=== PATIENT | female | born 1935 | race Caucasian/White ===

== ENCOUNTER → 2016-04-06 | Outpatient (CLI) | payer MEDICARE ==
--- NOTE | 2016-04-10 08:13 | MM ---
Reason for exam: screening (asymptomatic). Last mammogram was performed 1 year ago. History: Patient is postmenopausal. Family history of breast cancer in aunt at age 84. Benign stereotactic core biopsy of the left breast, May 09, 1999. Core biopsy of the left breast. Took estrogen for 18 years. Physical Findings: A clinical breast exam by your physician is recommended on an annual basis and results should be correlated with mammographic findings. MG 3D Screening Mammo W/Cad Bilateral CC and MLO view(s) were taken. Prior study comparison: April 04, 2015, right breast MG 3d work up w/cad RT. March 31, 2015, bilateral MG screening mammo w CAD. There are scattered fibroglandular densities. There is chronic nodularity in the right breast. No significant changes when compared with prior studies. ASSESSMENT: Benign, BI-RAD 2 RECOMMENDATION: Routine screening mammogram of both breasts in 1 year.
== END | disposition home or self-care (01) ==
LOC: RADMAMWWP 12:44
PROVIDERS: ATTEND Family Medicine
DX: Z12.31 Encounter for screening mammogram for malignant neoplasm of breast (principal)
CPT/HCPCS: 77063; G0202

== ENCOUNTER → 2017-08-20 | Outpatient (CLI) | payer MEDICARE ==
--- NOTE | 2017-08-22 11:55 | MM ---
Reason for exam: screening (asymptomatic). Last mammogram was performed 1 year and 4 months ago. History: Patient is postmenopausal. Family history of breast cancer in aunt at age 84. Benign stereotactic core biopsy of the left breast, May 09, 1999. Core biopsy of the left breast. Took estrogen for 18 years. Physical Findings: A clinical breast exam by your physician is recommended on an annual basis and results should be correlated with mammographic findings. MG 3D Screening Mammo W/Cad Bilateral CC and MLO view(s) were taken. Prior study comparison: April 06, 2016, bilateral MG 3d screening mammo w/cad. April 04, 2015, right breast MG 3d work up w/cad RT. There are scattered fibroglandular densities. There is chronic nodularity in the right breast. ASSESSMENT: Benign, BI-RAD 2 RECOMMENDATION: Routine screening mammogram of both breasts in 1 year.
== END | disposition home or self-care (01) ==
LOC: RADMAMWWP 10:27
PROVIDERS: ATTEND Internal Medicine
DX: Z12.31 Encounter for screening mammogram for malignant neoplasm of breast (principal)
CPT/HCPCS: 77063; 77067

== ENCOUNTER 2017-09-04 08:34 | Inpatient (IN) | payer MEDICARE ==
[2017-09-04] MEDS ORDERED: SODIUM CHLORIDE 0.9% 1,000 ML IV STA ×2 (08:54)
--- NOTE | 2017-09-04 09:01 | ED ---
Eye Problem HPI <Humza Coats - Last Filed: 09/04/17 11:32> - General Source: patient, RN notes reviewed, old records reviewed Mode of arrival: ambulatory Limitations: no limitations <Chyna Gibson - Last Filed: 09/04/17 11:56> - General Chief complaint: Eye Problems Stated complaint: Double Vision Time Seen by Provider: 09/04/17 08:39 - History of Present Illness Initial comments: This patient's a 81-year-old female chief complaint of onset of double vision when she woke this morning. Patient reports that when she has both her eyes open she sees double vision however when she closes one of her eyes she has normal vision. Patient states that she did have Lasix eye surgery. Patient states that she does visit her right eye is drooping. Patient states that she has no headache. Patient states that she's had no other symptoms including weakness or gait disturbance. Patient states she has no nausea or headache. Patient denies any chest pain or shortness of breath. She reports that she was told that she had a heart attack a few years ago when she was unknown to her when this occurred. (Chyna Gibson) - Related Data Home Medications Medication Instructions Recorded Confirmed Aspirin EC [Ecotrin Low Dose] 81 mg PO DAILY 11/09/16 09/04/17 Carvedilol [Coreg] 6.25 mg PO DAILY 11/09/16 09/04/17 Cetirizine HCl [Zyrtec] 10 mg PO DAILY 11/09/16 09/04/17 Fluticasone/Salmeterol [Advair 1 puff INHALATION RT-BID 11/09/16 09/04/17 100-50 Diskus] Losartan-Hctz 50-12.5 mg [Hyzaar 1 tab PO DAILY 11/09/16 09/04/17 50-12.5] Montelukast [Singulair] 10 mg PO HS 11/09/16 09/04/17 Omeprazole 20 mg PO DAILY 11/09/16 09/04/17 Spironolactone [Aldactone] 25 mg PO DAILY 11/09/16 09/04/17 Atorvastatin [Lipitor] 20 mg PO DAILY 09/04/17 09/04/17 Calcium/Magnesium/Zinc 1 tab PO DAILY 09/04/17 09/04/17 [Lwfftbk-Zyoeezuvl-Qyhi Tablet] Cholecalciferol [Vitamin D3] 1,000 unit PO DAILY 09/04/17 09/04/17 [place]-3 Fatty Acids/Fish Oil [Fish 1 tab PO DAILY 09/04/17 09/04/17 Oil 1,000 mg Softgel] Ubidecarenone [Co Q-10] 400 mg PO DAILY 09/04/17 09/04/17 Vit C/E/Zn/Coppr/Lutein/Zeaxan 1 tab PO DAILY 09/04/17 09/04/17 [Preservision Areds 2 Softgel] diphenhydrAMINE HCL [Benadryl] 25 mg PO HS 09/04/17 09/04/17 Allergies Allergy/AdvReac Type Severity Reaction Status Date / Time cephalexin monohydrate Allergy Chest Pain Verified 09/04/17 09:22 [From Keflex] Review of Systems ROS Other: All systems not noted in ROS Statement are negative. <Humza Coats - Last Filed: 09/04/17 11:32> ROS Other: All systems not noted in ROS Statement are negative. <Chyna Gibson - Last Filed: 09/04/17 11:56> ROS Statement: Those systems with pertinent positive or pertinent negative responses have been documented in the HPI. Past Medical History Past Medical History: Asthma, Myocardial Infarction (MD) Last Myocardial Infarction Date:: unknown History of Any Multi-Drug Resistant Organisms: None Reported Past Surgical History: Hysterectomy, Joint Replacement, Tonsillectomy Past Psychological History: No Psychological Hx Reported Smoking Status: Former smoker Past Alcohol Use History: Occasional Past Drug Use History: None Reported - Past Family History Son(s) Family Medical History: Hyperlipidemia <Chyna Gibson - Last Filed: 09/04/17 11:56> General Exam <Humza Coats - Last Filed: 09/04/17 11:32> Limitations: no limitations General appearance: alert, in no apparent distress Head exam: Present: atraumatic, normocephalic, normal inspection Eye exam: Present: PERRL, EOMI. Absent: normal appearance (Evidence of ptosis over the right eye.), scleral icterus, conjunctival injection, periorbital swelling ENT exam: Present: normal exam, mucous membranes moist Neck exam: Present: normal inspection. Absent: tenderness, meningismus, lymphadenopathy Respiratory exam: Present: normal lung sounds bilaterally. Absent: respiratory distress, wheezes, rales, rhonchi, stridor Cardiovascular Exam: Present: regular rate GI/Abdominal exam: Present: soft, normal bowel sounds. Absent: distended, tenderness, guarding, rebound, rigid Extremities exam: Present: normal inspection, full ROM, normal capillary refill. Absent: tenderness, pedal edema, joint swelling, calf tenderness Neurological exam: Present: alert, oriented X3. Absent: CN II-XII intact Expanded Patient oriented to: Present: person, place, time Speech: Present: fluid speech Cranial nerves: EOM's Intact: Normal (Evidence of ptosis over the right eye.), Facial Sensation: Normal Cerebellar function: Finger to Nose: Normal Upper motor neuron: Pronator Drift: Normal Sensory exam: Upper Extremity Light Touch: Normal, Lower Extremity Light Touch: Normal Motor strength exam: RUE: 5, LUE: 5, RLE: 5, LLE: 5 Eye Response: (4) open spontaneously Motor Response: (6) obeys commands Verbal Response: (5) oriented Arias Total: 15 Psychiatric exam: Present: normal affect, normal mood Skin exam: Present: warm, dry, intact, normal color. Absent: rash <Chyna Gibson - Last Filed: 09/04/17 11:56> - General Exam Comments Initial Comments: This is a 81-year-old female. Alert and oriented. (Chyna Gibson) Course <Humza Coats - Last Filed: 09/04/17 11:32> <Chyna Gibson - Last Filed: 09/04/17 11:56> Vital Signs 09/04/17 09/04/17 09/04/17 08:36 09:22 09:55 Temperature 98.2 F Pulse Rate 79 72 64 Respiratory 20 17 17 Rate Blood Pressure 121/75 119/65 123/60 O2 Sat by Pulse 98 98 Oximetry 09/04/17 11:30 Temperature Pulse Rate Respiratory 18 Rate Blood Pressure O2 Sat by Pulse Oximetry - Reevaluation(s) Reevaluation #1: 09/04/17 11:32 PA supervision: I did personally see and examine the patient I reviewed and agree with the PA findings including all diagnostic interpretation the treatment plan is written unless otherwise stated. Patient did demonstrate evidence of a third nerve palsy is unclear when it occurred the patient was last normal had about 10 PM last evening. She has no other findings or deficits this time she does demonstrate double vision on lateral gaze right and left with evidence of ptosis the right. No evidence of extremity deficits. I did discuss case with Dr. Perez. Patient will be admitted CT angios was ordered. (Humza Coats) Medical Decision Making - Lab Data Result diagrams: 09/04/17 09:11 09/04/17 09:11 <Humza Coats - Last Filed: 09/04/17 11:32> - Lab Data Result diagrams: 09/04/17 09:11 09/04/17 09:11 - Radiology Data Radiology results: report reviewed <Chyna Gibson - Last Filed: 09/04/17 11:56> - Medical Decision Making 81-year-old female presents emergency department today chief complaint of double vision as well as ptosis over the right eye. Patient has no neurological deficits besides these. Concern for deficits to cranial nerve #3. Patient CT of the brain was reviewed and negative for any acute process. Lab work was unremarkable. EKG shows no acute changes. She denies any other complaints at this time including headache. She was given a dose of aspirin emergency department. Patient case discussed with Dr. Coats. He also examined the Patient. Recommended CT ARRI[place]A head and neck. Patient will be admitted at this time currently pending CT. (Chyna Gibson) - Lab Data Lab Results 09/04/17 09/04/17 09/04/17 Range/Units 09:11 09:11 09:11 WBC 7.3 (3.8-10.6) k/uL RBC 4.24 (3.80-5.40) m/uL Hgb 13.6 (11.4-16.0) gm/dL Hct 38.2 (34.0-46.0) % MCV 89.9 (80.0-100.0) fL MCH 31.9 (25.0-35.0) pg MCHC 35.5 (31.0-37.0) g/dL RDW 14.0 (11.5-15.5) % Plt Count 253 (150-450) k/uL Neutrophils % 68 % Lymphocytes % 20 % Monocytes % 7 % Eosinophils % 2 % Basophils % 0 % Neutrophils # 5.0 (1.3-7.7) k/uL Lymphocytes # 1.4 (1.0-4.8) k/uL Monocytes # 0.5 (0-1.0) k/uL Eosinophils # 0.1 (0-0.7) k/uL Basophils # 0.0 (0-0.2) k/uL PT (9.0-12.0) sec INR (<1.2) APTT (22.0-30.0) sec Sodium (137-145) mmol/L Potassium (3.5-5.1) mmol/L Chloride (98-107) mmol/L Carbon Dioxide (22-30) mmol/L Anion Gap mmol/L BUN (7-17) mg/dL Creatinine (0.52-1.04) mg/dL Est GFR (CKD-EPI)AfAm (>60 ml/min/1.73 sqM) Est GFR (CKD-EPI)NonAf (>60 ml/min/1.73 sqM) Glucose (74-99) mg/dL Calcium (8.4-10.2) mg/dL Total Bilirubin (0.2-1.3) mg/dL AST (14-36) U/L ALT (9-52) U/L Alkaline Phosphatase (38-126) U/L Total Creatine Kinase 20 L (30-135) U/L CK-MB (CK-2) 0.5 (0.0-2.4) ng/mL CK-MB (CK-2) Rel Index 2.5 Troponin I <0.012 (0.000-0.034) ng/mL Total Protein (6.3-8.2) g/dL Albumin (3.5-5.0) g/dL Urine Color Light Yellow Urine Appearance Clear (Clear) Urine pH 5.5 (5.0-8.0) Ur Specific Str[place] 1.005 (1.001-1.035) Urine Protein Negative (Negative) Urine Glucose (UA) Negative (Negative) Urine Ketones Negative (Negative) Urine Blood Negative (Negative) Urine Nitrite Negative (Negative) Urine Bilirubin Negative (Negative) Urine Urobilinogen <2.0 (<2.0) mg/dL Ur Leukocyte Esterase Negative (Negative) 09/04/17 09/04/17 Range/Units 09:11 09:11 WBC (3.8-10.6) k/uL RBC (3.80-5.40) m/uL Hgb (11.4-16.0) gm/dL Hct (34.0-46.0) % MCV (80.0-100.0) fL MCH (25.0-35.0) pg MCHC (31.0-37.0) g/dL RDW (11.5-15.5) % Plt Count (150-450) k/uL Neutrophils % % Lymphocytes % % Monocytes % % Eosinophils % % Basophils % % Neutrophils # (1.3-7.7) k/uL Lymphocytes # (1.0-4.8) k/uL Monocytes # (0-1.0) k/uL Eosinophils # (0-0.7) k/uL Basophils # (0-0.2) k/uL PT 9.9 (9.0-12.0) sec INR 1.0 (<1.2) APTT 22.8 (22.0-30.0) sec Sodium 138 (137-145) mmol/L Potassium 4.6 (3.5-5.1) mmol/L Chloride 107 (98-107) mmol/L Carbon Dioxide 21 L (22-30) mmol/L Anion Gap 10 mmol/L BUN 17 (7-17) mg/dL Creatinine 0.68 (0.52-1.04) mg/dL Est GFR (CKD-EPI)AfAm >90 (>60 ml/min/1.73 sqM) Est GFR (CKD-EPI)NonAf 84 (>60 ml/min/1.73 sqM) Glucose 114 H (74-99) mg/dL Calcium 9.7 (8.4-10.2) mg/dL Total Bilirubin 0.7 (0.2-1.3) mg/dL AST 24 (14-36) U/L ALT 30 (9-52) U/L Alkaline Phosphatase 111 (38-126) U/L Total Creatine Kinase (30-135) U/L CK-MB (CK-2) (0.0-2.4) ng/mL CK-MB (CK-2) Rel Index Troponin I (0.000-0.034) ng/mL Total Protein 6.6 (6.3-8.2) g/dL Albumin 4.2 (3.5-5.0) g/dL Urine Color Urine Appearance (Clear) Urine pH (5.0-8.0) Ur Specific Strunk (1.001-1.035) Urine Protein (Negative) Urine Glucose (UA) (Negative) Urine Ketones (Negative) Urine Blood (Negative) Urine Nitrite (Negative) Urine Bilirubin (Negative) Urine Urobilinogen (<2.0) mg/dL Ur Leukocyte Esterase (Negative) 09/04/17 09:08 EKG performed at 905 shows normal sinus rhythm. Left axis deviation. Left bundle branch block. Abnormal EKG noted. Ventricular rate of 73 bpm. CA interval is 170 ms. QRS duration is 140 ms. QT QTc is 434/478 ms. (Chyna Gibson) - Radiology Data Reveals age-related atrophy. No acute intracranial process. Sinusitis. Clinical correlation recommended. Chest x-ray shows no acute pulmonary process. (Chyna Gibson) Disposition <Humza Coats - Last Filed: 09/04/17 11:32> Is patient prescribed a controlled substance at d/c from ED?: No When asked, does pt state using other controlled substances?: No If prescribed controlled substance>3 days was MAPS reviewed?: No If opioid is for acute pain is fill amount 7 days or less?: No If Rx opioid, was Start Talking consent form obtained?: No Time of Disposition: 11:56 <Chyna Gibson - Last Filed: 09/04/17 11:56> Clinical Impression: TIA (transient ischemic attack) Disposition: ADMITTED IP TO THIS HOSP Condition: Stable Referrals: Ivan Rosa MD [Primary Care Provider] - 1-2 days
[2017-09-04] MEDS ORDERED: ASPIRIN 325 MG TAB PO STA (09:02)
--- NOTE | 2017-09-04 09:44 | CT ---
EXAMINATION TYPE: CT brain wo con DATE OF EXAM: 09/04/2017 COMPARISON: None INDICATION: Double vision DLP: 1094.2 mGycm, Automated exposure control for dose reduction was used. CONTRAST: None CT of the brain is performed utilizing 3 mm thick sections through the posterior fossa and 3 mm thick sections through the remaining calvarium. Study is performed within 24 hours of arrival to the hosp ital. No abnormal hyperdensity is present to suggest an acute intracranial hemorrhage. No mass lesion is evident. No acute infarcts are evident. Ventricles and sulci have mild prominence for the patient age. There is near complete opacification of the left maxillary sinus. Correlate for acute sinusitis. A re tention cyst is likely within the right maxillary sinus. Main paranasal sinuses are clear. IMPRESSIONS: 1. Mild age-related atrophy. 2. No acute intracranial process. 3. Left maxillary sinusitis. Clinical correlation recommended.
[2017-09-04 09:53] LABS: Appearance,Urine Clear (Clear); Bilirubin,Urine Negative (Negative); Blood,Urine Negative (Negative); Color,Urine Light Yellow; Glucose,Urine (UA) Negative (Negative); Ketones,Urine Negative (Negative); Leukocyte Esterase,Urine Negative (Negative); Nitrite,Urine Negative (Negative); PH, Urine 5.5 (5.0-8.0); Protein,Urine Negative (Negative); Specific Gravity,Urine 1.005 (1.001-1.035); Urobilinogen,Urine <2.0 mg/dL (<2.0)
--- NOTE | 2017-09-04 09:57 | XR ---
EXAMINATION TYPE: XR chest 2V DATE OF EXAM: 09/04/2017 COMPARISON: 07/04/2010 INDICATION: Altered mental status, double vision TECHNIQUE: Frontal and lateral views of the chest are obtained. FINDINGS: The heart size is normal. The pulmonary vasculature is normal. The lungs are clear. IMPRESSION: 1. No acute pulmonary process.
[2017-09-04 09:58] LABS: Partial Thromboplastin Time 22.8 sec (22.0-30.0); Prothrombin Time 9.9 sec (9.0-12.0)
[2017-09-04 10:02] LABS: Basophils % (A) 0 %; Eosinophils # (A) 0.1 k/uL (0-0.7); Eosinophils % (A) 2 %; HCT 38.2 % (34.0-46.0); HGB 13.6 gm/dL (11.4-16.0); Lymphocytes # (A) 1.4 k/uL (1.0-4.8); Lymphocytes % (A) 20 %; MCH 31.9 pg (25.0-35.0); MCHC 35.5 g/dL (31.0-37.0); MCV 89.9 fL (80.0-100.0); Mean Platelet Volume 6.8; Monocytes # (A) 0.5 k/uL (0-1.0); Monocytes % (A) 7 %; Neutrophils % (A) 68 %; Platelet Count 253 k/uL (150-450); RBC 4.24 m/uL (3.80-5.40); WBC 7.3 k/uL (3.8-10.6)
[2017-09-04 10:15] LABS: ALT 30 U/L (9-52); AST 24 U/L (14-36); Albumin 4.2 g/dL (3.5-5.0); Alkaline Phosphatase 111 U/L (38-126); Anion Gap 10 mmol/L; Blood Urea Nitrogen 17 mg/dL (7-17); Calcium 9.7 mg/dL (8.4-10.2); Carbon Dioxide 21 mmol/L (22-30); Chloride 107 mmol/L (98-107); Glucose 114 mg/dL (74-99); Potassium 4.6 mmol/L (3.5-5.1); Sodium 138 mmol/L (137-145); Total Bilirubin 0.7 mg/dL (0.2-1.3); Total Protein 6.6 g/dL (6.3-8.2)
[2017-09-04 10:17] LABS: Creatine Kinase 20 U/L (30-135)
[2017-09-04 10:30] LABS: Creatine Kinase MB 0.5 ng/mL (0.0-2.4); Troponin I <0.012 ng/mL (0.000-0.034)
--- NOTE | 2017-09-04 12:13 | CT ---
EXAMINATION TYPE: CT angio head neck DATE OF EXAM: 09/04/2017 COMPARISON: CT brain earlier today HISTORY: 81-year-old female with pain and double vision TECHNIQUE: Contiguous axial scanning of the head and neck performed with IV Contrast, patient injecte d with 65 mL of Isovue 370. Coronal/sagittal MIP reconstructions performed. 3-D reconstructions gener ated on a dedicated independent workstation CT DLP: 378.80 mGycm Automated exposure control for dose reduction was used. FINDINGS: Neck: Mild atherosclerotic calcifications within the aortic arch. Mild metastatic narrowing at the origin o f the left common carotid artery. The left common and internal carotid arteries otherwise remain wide ly patent. The right brachiocephalic, and right common carotid arteries are widely patent. There is mild eccentr ic plaque within the right carotid bulb with less than 20% proximal ICA narrowing. The right internal carotid artery is otherwise widely patent. Mild atherosclerotic narrowing at the origin of the left vertebral artery. The vertebral arteries are codominant and patent throughout their course. Head: Moderate to severe mucosal thickening within the left maxillary sinus and a polyp/mucosal retention c yst along the floor of the right maxillary sinus. The vertebral, basilar, and internal carotid arteries are patent. The remainder of the anterior and p osterior circulations are grossly patent. Very slight 3.3 mm fusiform dilatation at the basilar artery terminus, series 4 image 88 and series 1 0 image 12. IMPRESSION: 1. NECK: MILD ATHEROSCLEROTIC PLAQUE AT THE RIGHT CAROTID BULB. NO HEMODYNAMICALLY SIGNIFICANT STENOS IS APPRECIATED IN EITHER INTERNAL CAROTID ARTERY. MILD ATHEROSCLEROTIC NARROWING AT THE ORIGIN OF THE LEFT VERTEBRAL ARTERY. 2. HEAD: SLIGHT 3.3 MM FUSIFORM DILATATION AT THE BASILAR ARTERY TERMINUS. NO SIGNIFICANT STENOSIS, A RTERIAL OCCLUSION, OR OTHER ANEURYSMAL CHANGE SEEN. INCIDENTAL SEVERE CHRONIC LEFT MAXILLARY SINUS DI SEASE.
[2017-09-04] MEDS: HEPARIN SODIUM,PORCINE 5,000 UNIT/ML 1 ML VIAL SQ SCH (12:55)
[2017-09-04] MEDS: CARVEDILOL 6.25 MG TAB PO SCH (13:55)
[2017-09-04] MEDS: LOSARTAN-HCTZ 50-12.5 MG 1 EACH TAB PO SCH (13:55)
[2017-09-04] MEDS: LORATADINE 10 MG TAB PO SCH (13:55)
[2017-09-04] MEDS: SPIRONOLACTONE 25 MG TAB PO SCH (13:55)
--- NOTE | 2017-09-04 14:53 | P.HPIM ---
History of Present Illness H&P Date: 09/04/17 Chief Complaint: Double vision Is a 81-year-old female patient of Dr. Rosa with past medical history of moderate persistent asthma, myocardial infarction without previous stenting, hypertension, gastroesophageal reflux disease, hyperlipidemia. His last hospitalization was in October of last year which time she was treated for cat bite. Patient states that she developed double vision this morning. She was fine before she went to bed last night but woke up with double vision and drooping of her right eyelid. She denies any numbness. She denies any recent illness. In general, she states she didn't feel very good yesterday but she thought it was related to stress as her sump pump failed to work. She last saw Dr. Rosa in the spring and last saw Dr. Heranndez about 3 months ago. At that time he did do carotid study and she thinks he also did echocardiogram. Patient denies having any chest pain or shortness of breath. She denies any weakness or trouble with her lower extremities. No problems with ambulating or falls. She denies having any headache but feels like she is on the verge of getting a headache. No nausea or vomiting. She denies any black or tarry stools. Patient came into [facility] emergency center for evaluation. Vital signs stable. Patient was afebrile, pulse ox 98% on room air. CBC within normal limits, electrolytes essentially normal, creatinine 0.68. Blood sugar was 114. Chest x-ray CT of the brain showed mild age-related atrophy. No acute intracranial process. Left maxillary sinusitis. Patient has been admitted to the hospital for possible CVA rule out brain aneurysm, rule out myasthenia gravis. Subsequently, CTA of the neck showed mild atherosclerotic plaque at the right carotid bulb. No hemodynamically significant stenosis on either internal carotid artery. Mild atherosclerotic narrowing at the left vertebral artery. 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 No significant stenosis, arterial occlusion or other aneurysmal change seen. 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 BRONSON, acetylcholine, vitamin B12, folate, Lyme disease testing and MUSK antibodies ordered. Consult with Dr. Heaton added. Review of Systems All systems: negative Constitutional: Reports fatigue, Denies chills, Denies fever, Denies poor appetite Eyes: bilateral diplopia, denies blurred vision, denies pain Ears, nose, mouth and throat: Denies headache, Denies sore throat Cardiovascular: Denies chest pain, Denies decreased exercise tolerance, Denies dyspnea on exertion, Denies edema, Denies leg edema, Denies lightheadedness, Denies shortness of breath, Denies syncope Respiratory: Denies cough, Denies cough with sputum, Denies dyspnea, Denies excessive sputum, Denies hemoptysis, Denies home oxygen, Denies wheezing Gastrointestinal: Denies abdominal pain, Denies diarrhea, Denies nausea, Denies vomiting Genitourinary: Denies dysuria, Denies hematuria Musculoskeletal: Denies myalgias Integumentary: Denies pruritus, Denies rash Neurological: Denies numbness, Denies weakness Psychiatric: Denies anxiety, Denies depression Endocrine: Denies fatigue, Denies weight change Past Medical History Past Medical History: Asthma, GERD/Reflux, Hyperlipidemia, Hypertension, Myocardial Infarction ([place]) Additional Past Medical History / Comment(s): Moderate persistent asthma Last Myocardial Infarction Date:: unknown History of Any Multi-Drug Resistant Organisms: None Reported Past Surgical History: Hysterectomy, Joint Replacement, Tonsillectomy Additional Past Surgical History / Comment(s): Bilateral cataract removal and intraocular lens implants done 2-3 years ago, arthroscopic be with repair of OCL on the right knee. Past Psychological History: No Psychological Hx Reported Smoking Status: Former smoker Past Alcohol Use History: Occasional Additional Past Alcohol Use History / Comment(s): Patient was a smoker of half pack per day for 40 years and quit 25 years ago. Past Drug Use History: None Reported - Past Family History Son(s) Family Medical History: Hyperlipidemia Additional Family Medical History / Comment(s): Patient has one son and one daughter with no major medical problems. Father Additional Family Medical History / Comment(s): Father at age 76 from renal failure secondary to ankylosing spondylitis. Mother Additional Family Medical History / Comment(s): Mother at age 100 from old age. Medications and Allergies Home Medications Medication Instructions Recorded Confirmed Type Aspirin EC [Ecotrin Low Dose] 81 mg PO DAILY 11/09/16 09/04/17 History Carvedilol [Coreg] 6.25 mg PO DAILY 11/09/16 09/04/17 History Cetirizine HCl [Zyrtec] 10 mg PO DAILY 11/09/16 09/04/17 History Fluticasone/Salmeterol [Advair 1 puff INHALATION RT-BID 11/09/16 09/04/17 History 100-50 Diskus] Losartan-Hctz 50-12.5 mg [Hyzaar 1 tab PO DAILY 11/09/16 09/04/17 History 50-12.5] Montelukast [Singulair] 10 mg PO HS 11/09/16 09/04/17 History Omeprazole 20 mg PO DAILY 11/09/16 09/04/17 History Spironolactone [Aldactone] 25 mg PO DAILY 11/09/16 09/04/17 History Atorvastatin [Lipitor] 20 mg PO DAILY 09/04/17 09/04/17 History Calcium/Magnesium/Zinc 1 tab PO DAILY 09/04/17 09/04/17 History [Iwpwrav-Pwgxezctt-Lvys Tablet] Cholecalciferol [Vitamin D3] 1,000 unit PO DAILY 09/04/17 09/04/17 History [place]-3 Fatty Acids/Fish Oil [Fish 1 tab PO DAILY 09/04/17 09/04/17 History Oil 1,000 mg Softgel] Ubidecarenone [Co Q-10] 400 mg PO DAILY 09/04/17 09/04/17 History Vit C/E/Zn/Coppr/Lutein/Zeaxan 1 tab PO DAILY 09/04/17 09/04/17 History [Preservision Areds 2 Softgel] diphenhydrAMINE HCL [Benadryl] 25 mg PO HS 09/04/17 09/04/17 History Allergies Allergy/AdvReac Type Severity Reaction Status Date / Time cephalexin monohydrate Allergy Chest Pain Verified 09/04/17 09:22 [From Keflex] Physical Exam Vitals: Vital Signs Temp Pulse Resp BP Pulse Ox 09/04/17 09:55 64 17 123/60 98 09/04/17 09:22 72 17 119/65 09/04/17 08:36 98.2 F 79 20 121/75 98 Intake and Output 09/03/17 09/04/17 09/04/17 22:59 06:59 14:59 Other: Weight 71.668 kg Gen: This is a 81-year-old female. She is seen in the ER stretcher and appears to be comfortable in no acute distress. HEENT: Head is atraumatic, normocephalic. Pupils equal, round. Sclerae is anicteric. Noted right eyelid droop. NECK: Supple. No JVD. No lymphadenopathy. No thyromegaly. LUNGS: Clear to auscultation. No wheezes or rhonchi. No intercostal retractions. HEART: Regular rate and rhythm. No murmur. ABDOMEN: Soft. Bowel sounds are present. No masses. No tenderness. EXTREMITIES: No pedal edema. No calf tenderness. NEUROLOGICAL: Patient is awake, alert and oriented x3. Cranial nerves 2 through 12 are grossly intact. 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 Speech is clear Results CBC & Chem 7: 09/04/17 09:11 09/04/17 09:11 Labs: Abnormal Lab Results - Last 24 Hours (Table) 09/04/17 09/04/17 Range/Units 09:11 09:11 Carbon Dioxide 21 L (22-30) mmol/L Glucose 114 H (74-99) mg/dL Total Creatine Kinase 20 L (30-135) U/L Thrombosis Risk Factor Assmnt - DVT/VTE Prophylaxis DVT/VTE Prophylaxis: Pharmacologic Prophylaxis ordered Assessment and Plan Plan: 1. Presentation of blurred vision and right eyelid droop rule out CVA, brain aneurysm, myasthenia gravis. Consult with Dr. Heaton. CTA of the head and neck as above. BRONSON, acetylcholine, vitamin B12, folate, Lyme disease testing and MUSK antibodies ordered. Continue aspirin, Lipitor. PT, OT and speech therapies requested. 2. Hypertension. Continue Coreg 6.25 mg twice daily, Hyzaar 50/12.5 daily, spironolactone 25 mg daily 3. Moderate persistent asthma, stable without exacerbation. Continue Symbicort twice daily, Singulair 10 mg at bedtime 4. History of myocardial infarction without stenting. No complaints of chest pain. 5. Gastroesophageal reflux disease. Continue Pepcid daily 6. Hyperlipidemia. Continue atorvastatin 20 mg at bedtime. 7. DVT prophylaxis. Heparin subcu. Patient will be admitted to the hospital for a minimum of 2 night stay. Discharge plan: Most likely return home Impression and plan of care have been directed as dictated by the signing physician. Ava Borjas nurse practitioner acting as scribe for signing physician.
[2017-09-04] MEDS: SYMBICORT 80-4.5 MCG INHALER INHALATION SCH (19:19)
[2017-09-04 19:23] LABS: Folate, Serum 16.9 ng/mL
[2017-09-04] MEDS: SODIUM CHLORIDE 0.9% 1,000 ML IV SCH ×2 (19:38→21:32)
[2017-09-04] MEDS: ATORVASTATIN 20 MG TAB PO SCH (19:50)
[2017-09-04] MEDS: FAMOTIDINE 20 MG/2 ML VIAL IV SCH (19:50)
[2017-09-04] MEDS: MONTELUKAST 10 MG TAB PO SCH (19:50)
[2017-09-04] MEDS ORDERED: HEPARIN SODIUM,PORCINE 5,000 UNIT/ML 1 ML VIAL ONE (23:35)
[2017-09-05] MEDS ORDERED: diphenhydrAMINE 25 MG CAP ONE (00:30)
[2017-09-05] MEDS: diphenhydrAMINE 25 MG CAP PO SCH ×2 (05:58→21:32)
[2017-09-05] MEDS: HEPARIN SODIUM,PORCINE 5,000 UNIT/ML 1 ML VIAL SQ SCH ×3 (05:58→23:25)
[2017-09-05] MEDS: PANTOPRAZOLE 40 MG TABLET PO SCH (06:46)
[2017-09-05] MEDS: CARVEDILOL 6.25 MG TAB PO SCH (06:46)
[2017-09-05] MEDS: SODIUM CHLORIDE 0.9% 1,000 ML IV SCH (06:50)
[2017-09-05] MEDS: CHOLECALCIFEROL 1,000 UNIT TAB PO SCH (08:58)
[2017-09-05] MEDS: CALCIUM CARB-VIT D 250MG-125UN 1 EACH TAB PO SCH (08:58)
[2017-09-05] MEDS: LORATADINE 10 MG TAB PO SCH (08:58)
[2017-09-05] MEDS: SYMBICORT 80-4.5 MCG INHALER INHALATION SCH ×2 (08:58→18:49)
[2017-09-05] MEDS: FAMOTIDINE 20 MG/2 ML VIAL IV SCH (08:58)
[2017-09-05] MEDS: ASPIRIN 81 MG PO SCH (08:58)
[2017-09-05] MEDS: SPIRONOLACTONE 25 MG TAB PO SCH (08:59)
[2017-09-05] MEDS: LOSARTAN-HCTZ 50-12.5 MG 1 EACH TAB PO SCH (08:59)
[2017-09-05] MEDS ORDERED: NON-FORMULARY DRUG (Omega-3 Fatty Acids/Fish Oil [Fish Oil 1,000 Mg Softgel] 1 TAB) PO SCH (09:00)
--- NOTE | 2017-09-05 10:28 | P.CRDCN ---
History of Present Illness Consult date: 09/05/17 Requesting physician: Digna Perez Chief complaint: Double vision History of present illness: This is a pleasant 81-year-old female who follows regularly with Dr. Hernandez in the office. She has a known history of hypertension, hyperlipidemia, asthma, prior myocardial infarction in the past which she was told was a silent NH, patient has not undergone any form of intervention in the past. She did undergo a Lexiscan stress test in 2015 which did not reveal any evidence of ischemia. Echo performed in the office in February of this year revealed a normal ejection fraction. According to the patient, she's been doing quite well at home overall, she felt well going to bed the night before, but upon wakening she states that she had double vision and drooping of the right eyelid. She denies any other symptoms. She came to the hospital for this reason. CAT scan of the brain performed on arrival here revealed mild age- related atrophy, no acute intracranial process, left maxillary sinusitis. Chest x-ray did not reveal any acute cardiopulmonary process. CT angiography of the head and neck was also performed, revealed mild atherosclerotic plaque at the right carotid bulb, no hemodynamically significant stenosis appreciated in either internal carotid artery. Slight 3 mm fusiformly dilated dictation of the basilar artery terminus noted no significant stenosis arterial occlusion or other aneurysmal change seen. EKG on admission showed normal sinus rhythm with left bundle branch block pattern. Blood pressure 136/60 with a heart rate in the 70s, 93% on room air. CBC normal, hemoglobin 13.6, platelet count 253, sodium 138, potassium 4.6, BUN 17, creatinine 0.6. Troponin 0.012. BRONSON screen negative. At the time of my examination this morning, patient continues to have drooping of the right eyelid, her right eye she is able to see clearly out of her left eye, left eye is quite blurry, and when both eyes are open she continues to have diplopia. Past Medical History Past Medical History: Asthma, GERD/Reflux, Hyperlipidemia, Hypertension, Myocardial Infarction ([place]) Additional Past Medical History / Comment(s): Moderate persistent asthma, past bronchitis, cat bit developed cellulitis rt lower ext. hx silent mi, migraines, cataracts(sx), past uterine fibroids(sx) Last Myocardial Infarction Date:: unknown History of Any Multi-Drug Resistant Organisms: None Reported Past Surgical History: Hysterectomy, Joint Replacement, Tonsillectomy Additional Past Surgical History / Comment(s): Bilateral cataract removal and intraocular lens implants done 2-3 years ago, rt knee acl repair, colonoscopy/ polypectomy-benign., egd, lt breast bx-neg, 2 previous dental implant and inprocess of 3rd one. Smoking Status: Former smoker - Past Family History Son(s) Family Medical History: Hyperlipidemia Additional Family Medical History / Comment(s): Patient has one son and one daughter with no major medical problems. Father Additional Family Medical History / Comment(s): Father at age 76 from renal failure. secondary to "ankylosing spondylitis". Mother Additional Family Medical History / Comment(s): Mother in hursing home at age 100. hx bipolar depression, schizophrenia, dementia Medications and Allergies Home Medications Medication Instructions Recorded Confirmed Type Aspirin EC [Ecotrin Low Dose] 81 mg PO DAILY 11/09/16 09/04/17 History Carvedilol [Coreg] 6.25 mg PO DAILY 11/09/16 09/04/17 History Cetirizine HCl [Zyrtec] 10 mg PO DAILY 11/09/16 09/04/17 History Fluticasone/Salmeterol [Advair 1 puff INHALATION RT-BID 11/09/16 09/04/17 History 100-50 Diskus] Losartan-Hctz 50-12.5 mg [Hyzaar 1 tab PO DAILY 11/09/16 09/04/17 History 50-12.5] Montelukast [Singulair] 10 mg PO HS 11/09/16 09/04/17 History Omeprazole 20 mg PO DAILY 11/09/16 09/04/17 History Spironolactone [Aldactone] 25 mg PO DAILY 11/09/16 09/04/17 History Atorvastatin [Lipitor] 20 mg PO DAILY 09/04/17 09/04/17 History Calcium/Magnesium/Zinc 1 tab PO DAILY 09/04/17 09/04/17 History [Rhrvkab-Fndeaakmp-Doqv Tablet] Cholecalciferol [Vitamin D3] 1,000 unit PO DAILY 09/04/17 09/04/17 History [place]-3 Fatty Acids/Fish Oil [Fish 1 tab PO DAILY 09/04/17 09/04/17 History Oil 1,000 mg Softgel] Ubidecarenone [Co Q-10] 400 mg PO DAILY 09/04/17 09/04/17 History Vit C/E/Zn/Coppr/Lutein/Zeaxan 1 tab PO DAILY 09/04/17 09/04/17 History [Preservision Areds 2 Softgel] diphenhydrAMINE HCL [Benadryl] 25 mg PO HS 09/04/17 09/04/17 History Allergies Allergy/AdvReac Type Severity Reaction Status Date / Time cephalexin monohydrate Allergy Chest Pain Verified 09/04/17 09:22 [From Keflex] Physical Exam Vitals: Vital Signs Temp Pulse Pulse Resp BP BP Pulse Ox 09/05/17 09:03 79 18 09/05/17 08:57 97.6 F 79 18 137/66 93 L 09/04/17 20:00 97.5 F L 68 15 148/68 93 L 09/04/17 18:17 98.2 F 63 17 154/82 100 09/04/17 16:54 16 09/04/17 15:48 62 17 151/70 99 09/04/17 14:46 59 L 18 143/64 100 09/04/17 13:58 66 18 139/70 98 09/04/17 12:18 74 17 145/65 97 09/04/17 11:30 18 09/04/17 09:55 64 17 123/60 98 Intake and Output 09/04/17 09/05/17 09/05/17 22:59 06:59 14:59 Intake Total 580 Balance 580 Intake: IV 100 Sodium Chloride 0.9% 1, 100 000 ml @ 100 mls/hr IV . Q10H [facility] Rx#:[id number] Oral 480 Other: Voiding Method Toilet # Voids 1 PHYSICAL EXAMINATION: GENERAL: 81-year-old female in no acute distress at time of my examination HEENT: Head is atraumatic, normocephalic. Drooping of the right eyelid noted .Mucous membranes of the mouth are moist. Neck is supple. There is no elevated jugular venous pressure. No carotid bruit is heard. HEART EXAMINATION: Heart S1, S2 normal. No murmur or gallop heard. CHEST EXAMINATION: Lungs reveal scattered wheezing . No chest wall tenderness is noted on palpation or with deep breathing. ABDOMEN: Soft, nontender. Bowel sounds are heard. No organomegaly noted. EXTREMITIES: 2+ peripheral pulses with no evidence of peripheral edema and no calf tenderness noted. NEUROLOGIC [patient is awake, alert and oriented X3. Positive doploplia when both eyes open. Results 09/04/17 09:11 09/04/17 09:11 Cardiac Enzymes 09/04/17 09/04/17 Range/Units 09:11 09:11 AST 24 (14-36) U/L CK-MB (CK-2) 0.5 (0.0-2.4) ng/mL Troponin I <0.012 (0.000-0.034) ng/mL Coagulation 09/04/17 Range/Units 09:11 PT 9.9 (9.0-12.0) sec APTT 22.8 (22.0-30.0) sec CBC 09/04/17 Range/Units 09:11 WBC 7.3 (3.8-10.6) k/uL RBC 4.24 (3.80-5.40) m/uL Hgb 13.6 (11.4-16.0) gm/dL Hct 38.2 (34.0-46.0) % Plt Count 253 (150-450) k/uL Comprehensive Metabolic Panel 09/04/17 Range/Units 09:11 Sodium 138 (137-145) mmol/L Potassium 4.6 (3.5-5.1) mmol/L Chloride 107 (98-107) mmol/L Carbon Dioxide 21 L (22-30) mmol/L BUN 17 (7-17) mg/dL Creatinine 0.68 (0.52-1.04) mg/dL Glucose 114 H (74-99) mg/dL Calcium 9.7 (8.4-10.2) mg/dL AST 24 (14-36) U/L ALT 30 (9-52) U/L Alkaline Phosphatase 111 (38-126) U/L Total Protein 6.6 (6.3-8.2) g/dL Albumin 4.2 (3.5-5.0) g/dL Current Medications Generic Name Dose Route Start Last Admin Trade Name Freq PRN Reason Stop Dose Admin Aspirin 81 mg 09/05/17 09:00 09/05/17 08:58 Aspirin PO 81 mg DAILY [facility] Administration Atorvastatin Calcium 20 mg 09/04/17 21:00 09/04/17 19:50 Lipitor PO 20 mg HS [facility]O Administration Budesonide/Formoterol Fumarate 2 puff 09/04/17 20:00 09/05/17 08:58 Symbicort 80-4.5 Mcg Inhaler INHALATION 2 puff RT-BID [facility]O Administration Calcium Carbonate 1 each 09/05/17 09:00 09/05/17 08:58 Oscal 250+D PO 1 each DAILY [facility] Administration Carvedilol 6.25 mg 09/04/17 12:30 09/05/17 06:46 Coreg PO 6.25 mg AC-[id number] [facility] Administration Cholecalciferol 1,000 unit 09/05/17 09:00 09/05/17 08:58 Vitamin D3 PO 1,000 unit DAILY [facility] Administration Diphenhydramine HCl 25 mg 09/04/17 21:00 09/05/17 05:58 Benadryl PO Not Given HS [facility] Famotidine 20 mg 09/04/17 21:00 09/05/17 08:58 Pepcid IV 20 mg Q12HR [facility] Administration HCTZ/Losartan Potassium 1 each 09/04/17 12:30 09/05/17 08:59 Hyzaar 50-12.5 PO 1 each DAILY [facility] Administration Heparin Sodium (Porcine) 5,000 unit 09/04/17 12:00 09/05/17 05:58 Heparin SQ Not Given Q12H [facility] Sodium Chloride 1,000 mls @ 100 mls/hr 09/04/17 12:00 09/05/17 06:50 Saline 0.9% IV 100 mls/hr .Q10H [facility] Administration Loratadine 10 mg 09/04/17 12:30 09/05/17 08:58 Claritin PO 10 mg DAILY [facility]O Administration Montelukast Sodium 10 mg 09/04/17 21:00 09/04/17 19:50 Singulair PO 10 mg HS [facility] Administration Pantoprazole Sodium 40 mg 09/05/17 07:30 09/05/17 06:46 Protonix PO 40 mg AC-BRKFST [facility] Administration Spironolactone 25 mg 09/04/17 12:30 09/05/17 08:59 Aldactone PO 25 mg DAILY R[facility]ARDO Administration Intake and Output 09/04/17 09/05/17 09/05/17 22:59 06:59 14:59 Intake Total 580 Balance 580 Intake: IV 100 Sodium Chloride 0.9% 1, 100 000 ml @ 100 mls/hr IV . Q10H [facility] Rx#:[id number] Oral 480 Other: Voiding Method Toilet # Voids 1 09/04/17 09:11 09/04/17 09:11 EKG Interpretations (text) EKG shows normal sinus rhythm with a left bundle-branch block pattern Assessment and Plan Plan: Assessment and plan #1 type locally with a drooping of the right eyelid, rule out CVA. #2 hypertension #3 asthma #4 GERD #5 hx of prior silent NH, per patient Plan Patient had a recent echocardiogram with Doppler study performed in the office in February 2017 which revealed a normal left ventricular systolic function., we will repeat an echo this admission as well. There has been no evidence of any atrial fibrillation on the monitor, we will continue to monitor for any arrhythmias. Patient also may require 30 day event monitor or loop recorder on discharge. Further recommendations to follow. DNP note has been reviewed, I agree with a documented findings and plan of care. Patient was seen and examined.
--- NOTE | 2017-09-05 11:51 | P.PN ---
Progress Note - Text this is an addendum to the cardiology consultation. the patient presents with symptoms of double vision. She had no prior history of CVA or TIA. She has no history of arrhythmia. She is a prior history of cardiomyopathy but on her most recent echocardiogram her left ventricle systolic function has normalized.she has no prior history of atrial fibrillation. She has been active physically without any limitations or difficulty. On her physical examination she is in sinus mechanism with no evidence of fluid overload. Her EKG shows sinus mechanism and she has no evidence of arrhythmia on the monitor. We will obtain an echocardiogram with Doppler and await neurological evaluation depending on that further recommendations will be made. Thank you for this consult we will follow with you.
--- NOTE | 2017-09-05 12:56 | P.PN ---
Subjective Progress Note Date: 09/05/17 This s a 81-year-old female patient of Dr. Rosa with past medical history of moderate persistent asthma, myocardial infarction without previous stenting, hypertension, gastroesophageal reflux disease, hyperlipidemia. His last hospitalization was in October of last year which time she was treated for cat bite. Patient states that she developed double vision this morning. She was fine before she went to bed last night but woke up with double vision and drooping of her right eyelid. She denies any numbness. She denies any recent illness. In general, she states she didn't feel very good yesterday but she thought it was related to stress as her sump pump failed to work. She last saw Dr. Rosa in the spring and last saw Dr. Hernandez about 3 months ago. At that time he did do carotid study and she thinks he also did echocardiogram. Patient denies having any chest pain or shortness of breath. She denies any weakness or trouble with her lower extremities. No problems with ambulating or falls. She denies having any headache but feels like she is on the verge of getting a headache. No nausea or vomiting. She denies any black or tarry stools. Patient came into [facility] emergency center for evaluation. Vital signs stable. Patient was afebrile, pulse ox 98% on room air. CBC within normal limits, electrolytes essentially normal, creatinine 0.68. Blood sugar was 114. Chest x-ray CT of the brain showed mild age-related atrophy. No acute intracranial process. Left maxillary sinusitis. Patient has been admitted to the hospital for possible CVA rule out brain aneurysm, rule out myasthenia gravis. Subsequently, CTA of the neck showed mild atherosclerotic plaque at the right carotid bulb. No hemodynamically significant stenosis on either internal carotid artery. Mild atherosclerotic narrowing at the left vertebral artery. 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 No significant stenosis, arterial occlusion or other aneurysmal change seen. 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 BRONSON, acetylcholine, vitamin B12, folate, Lyme disease testing and MUSK antibodies ordered. Consult with Dr. Hetaon added. 09/05: Patient continues to have double vision and dropping right eyelid. She denies weakness, difficulty swallowing, difficulty breathing, loss of bladder or bowel control. No headache. She does feel her asthma is bothering her with cough. MRI of the brain ordered. Consult with Dr. Heaton is pending. Patient seen by cardiology and echocardiogram ordered. No sign of atrial fib. Objective - Vital Signs Vital signs: Vital Signs Temp 97.5 F L 09/04/17 20:00 Pulse 68 09/04/17 20:00 Resp 17 09/04/17 20:00 BP 148/68 09/04/17 20:00 Pulse Ox 93 L 09/04/17 20:00 Intake & Output 09/04/17 09/05/17 09/05/17 18:59 06:59 18:59 Intake Total 580 Balance 580 Weight 71.668 kg Intake: IV 100 Sodium Chloride 0.9% 1, 100 000 ml @ 100 mls/hr IV . Q10H [facility] Rx#:[id number] Oral 480 Other: Voiding Method Toilet # Voids 1 - Exam Gen: This is a 81-year-old female. She is seen in the ER stretcher and appears to be comfortable in no acute distress. HEENT: Head is atraumatic, normocephalic. Pupils equal, round. Sclerae is anicteric. Noted right eyelid droop. NECK: Supple. No JVD. No lymphadenopathy. No thyromegaly. LUNGS: Clear to auscultation. No wheezes or rhonchi. No intercostal retractions. HEART: Regular rate and rhythm. No murmur. ABDOMEN: Soft. Bowel sounds are present. No masses. No tenderness. EXTREMITIES: No pedal edema. No calf tenderness. NEUROLOGICAL: Patient is awake, alert and oriented x3. Cranial nerves 2 through 12 are grossly intact. 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 Speech is clear - Labs CBC & Chem 7: 09/04/17 09:11 09/04/17 09:11 Labs: Abnormal Lab Results - Last 24 Hours (Table) 09/04/17 09/04/17 Range/Units 09:11 09:11 Carbon Dioxide 21 L (22-30) mmol/L Glucose 114 H (74-99) mg/dL Total Creatine Kinase 20 L (30-135) U/L Assessment and Plan Plan: 1. Presentation of blurred vision and right eyelid droop rule out CVA, brain aneurysm, myasthenia gravis. Consult with Dr. Shuayto. CTA of the head and neck as above. BRONSON, acetylcholine, vitamin B12, folate, Lyme disease testing and MUSK antibodies ordered. Continue aspirin, Lipitor. PT, OT and speech therapies requested. MRI of the brain ordered. 2. Hypertension. Continue Coreg 6.25 mg twice daily, Hyzaar 50/12.5 daily, spironolactone 25 mg daily 3. Moderate persistent asthma, stable without exacerbation. Continue Symbicort twice daily, Singulair 10 mg at bedtime 4. History of myocardial infarction without stenting. No complaints of chest pain. 5. Gastroesophageal reflux disease. Continue Pepcid daily 6. Hyperlipidemia. Continue atorvastatin 20 mg at bedtime. 7. DVT prophylaxis. Heparin subcu. Discharge plan: Most likely return home Impression and plan of care have been directed as dictated by the signing physician. Ava Borjas nurse practitioner acting as scribe for signing physician.
[2017-09-05] MEDS: IPRATROPIUM-ALBUTEROL 3 ML NEB INHALATION SCH ×2 (13:44→18:49)
[2017-09-05 15:22] LABS: Cholesterol 116 mg/dL (<200); HDL Cholesterol 37 mg/dL (40-60); LDL Cholesterol,Calculated 46 mg/dL (0-99); Triglycerides 167 mg/dL (<150)
--- NOTE | 2017-09-05 20:21 | CONS ---
CONSULTATION CHIEF COMPLAINT: Intermittent diplopia, right eye. HISTORY OF PRESENT ILLNESS: Patient complains of intermittent diplopia in the right eye which lasts for few minutes, not continuous, not associated with a headache. No eye pain. No head injury. She denies previous attacks in the past. She also noticed a droopy right upper lid for the last 2 days. Medical history reviewed including that the patient has asthma controlled with inhaler, hypertension and heart attack without the stent. The patient denies any peripheral tingling or numbness. The patient denies any loss of side vision. EYE EXAMINATION: Vision right eye 20/40, reading chart with reading glasses and 20/25 left eye. Extraocular motility looks full with no diplopia in the different gaze of vision. The right upper lid shows ptosis. Pupils look reactive with no relative afferent pupillary defect. Cornea clear. Anterior chamber deep. Tension applanation 18 mmHg right eye and 19 mmHg left eye. Implants both eyes. Retina deferred. ASSESSMENT: 1. Diplopia, intermittent. 2. Right upper lid ptosis. PLAN: CT scan and angiogram were reviewed, were normal. The patient is going for MRI tomorrow. I advised to see the patient in the office tomorrow afternoon at around 1 or 2 o'clock to do a visual field and visual evoked potential. Most probably it is infarction without any aneurysm. Still early aneurysm of the [place] of [place] should be excluded by testing tomorrow. No signs of temporal arteritis. So I will see her tomorrow, Dr. Villela and office number is [phone]. Thank you. MMODL / IJN: [id number] /
[2017-09-05] MEDS: MONTELUKAST 10 MG TAB PO SCH (21:32)
[2017-09-05] MEDS: ATORVASTATIN 20 MG TAB PO SCH (21:32)
[2017-09-06] MEDS: PANTOPRAZOLE 40 MG TABLET PO SCH (06:32)
[2017-09-06] MEDS: CARVEDILOL 6.25 MG TAB PO SCH (06:32)
[2017-09-06] MEDS: LOSARTAN-HCTZ 50-12.5 MG 1 EACH TAB PO SCH (07:35)
[2017-09-06] MEDS: LORATADINE 10 MG TAB PO SCH (07:35)
[2017-09-06] MEDS: ASPIRIN 81 MG PO SCH (07:35)
[2017-09-06] MEDS: CHOLECALCIFEROL 1,000 UNIT TAB PO SCH (07:35)
[2017-09-06] MEDS: CALCIUM CARB-VIT D 250MG-125UN 1 EACH TAB PO SCH (07:35)
[2017-09-06] MEDS: SPIRONOLACTONE 25 MG TAB PO SCH (07:35)
[2017-09-06 07:39] VITALS: RESP 18
[2017-09-06 07:47] LABS: HCT 37.6 % (34.0-46.0); HGB 12.5 gm/dL (11.4-16.0); MCH 30.3 pg (25.0-35.0); MCHC 33.3 g/dL (31.0-37.0); Mean Platelet Volume 6.9; Platelet Count 221 k/uL (150-450); RBC 4.13 m/uL (3.80-5.40); RDW 13.9 % (11.5-15.5)
[2017-09-06] MEDS: IPRATROPIUM-ALBUTEROL 3 ML NEB INHALATION SCH ×2 (07:54→11:46)
[2017-09-06] MEDS: SYMBICORT 80-4.5 MCG INHALER INHALATION SCH (07:54)
[2017-09-06 08:21] LABS: Albumin 4.1 g/dL (3.5-5.0); Magnesium 2.1 mg/dL (1.6-2.3); Potassium 4.4 mmol/L (3.5-5.1); Total Bilirubin 0.6 mg/dL (0.2-1.3); Total Protein 6.5 g/dL (6.3-8.2)
--- NOTE | 2017-09-06 09:49 | CONS ---
CONSULTATION DATE OF CONSULTATION: 09/05/2017 CHIEF COMPLAINT: Double vision. HISTORY OF PRESENT ILLNESS: Mrs. Holt is a pleasant 81-year-old female who is being evaluated on 09/05/2017 by the Neurology Service per the request of Dr. Perez for double vision. The patient was brought in to [facility] emergency room after she noticed she was having double vision and right eyelid drooping. The patient states that she woke up with these symptoms yesterday and did not have any symptoms when she went to sleep. She denies any previous symptoms similar to this. She does complain of some fatigue. A CT scan of the brain was done, which showed generalized atrophy and evidence of left maxillary sinusitis. A CT angiogram of the neck was done which showed no significant stenosis. 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 An MRI of the brain has been ordered. Her CBC, comprehensive metabolic profile, cardiac enzymes, fasting lipid panel, urinalysis, and vitamin B12 levels were all reviewed and were all normal. At the time of my evaluation, she denies any changes in her symptoms except her double vision now comes and goes. PAST MEDICAL HISTORY: Asthma, dyslipidemia, gastroesophageal reflux disease, hypertension, myocardial infarction, history of hysterectomy, tonsillectomy, joint replacement surgery, cataract surgeries, orthopedic surgery. SOCIAL HISTORY: The patient is a former smoker. She occasionally drinks alcohol. She denies any drug use. FAMILY HISTORY: Positive for dyslipidemia and renal failure. HOME MEDICATIONS: Reviewed in the chart. ALLERGIES: KEFLEX. REVIEW OF SYSTEMS: CONSTITUTIONAL: Positive for fatigue. EYES: As mentioned above. ENT: Negative. CARDIOVASCULAR: Negative. RESPIRATORY: Positive for occasional shortness of breath. NEUROLOGICAL: As mentioned above. GASTROINTESTINAL: Negative. GENITOURINARY: Negative. PSYCHIATRIC: Negative. ENDOCRINE: Negative. DERMATOLOGICAL: Negative. MUSCULOSKELETAL: Positive for occasional joint pain. PHYSICAL EXAM: Vital signs show a temperature of 98.0, pulse 74, respiration 18, blood pressure 144/67. GENERAL APPEARANCE: The patient is a mildly obese female who appears to be in no acute distress. HEENT: Normocephalic, atraumatic, right eye ptosis is seen. NECK: Supple with no masses felt. CARDIOVASCULAR: Regular rate and rhythm. ABDOMEN: Nontender, nondistended. EXTREMITIES: Showed no edema or clubbing. NEUROLOGICAL EXAM: The patient is awake and oriented x3. Speech and language are normal. Strength is full in all 4 extremities. Sensory exam was normal to light touch in all 4 extremities. Cranial nerve testing showed right eye ptosis. Extraocular muscle testing showed increasing diplopia with left lateral gaze. No tremors or seizure-like activity is seen. IMPRESSION: 1. Right eye ptosis. 2. Diplopia. 3. Intracranial aneurysm. 4. Hypertension. RECOMMENDATION: The patient has been having double vision and ptosis since she woke up yesterday. She is also complaining of some fatigue. 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 I will order a myasthenia gravis panel. An MRI of the brain has been ordered as well. The patient will need further outpatient workup at the Neurology Clinic. Continue neuro checks. I will continue to follow with you. Further recommendations to follow. Thank you for allowing me to participate in the care of your patient. If you have any questions, please feel free to contact me. ARUN / ROSCOEN: [id number] /
[2017-09-06 10:22] LABS: Lyme IgG/IgM 0.2 Index
--- NOTE | 2017-09-06 10:36 | ECHOF ---
Referral Reason:cm MEASUREMENTS -------- HEIGHT: 157.5 cm WEIGHT: 71.7 kg BP: 137/66 RVIDd: 2.6 cm (< 3.3) IVSd: 1.2 cm (0.6 - 1.1) LVIDd: 3.6 cm (3.9 - 5.3) LVPWd: 1.2 cm (0.6 - 1.1) IVSs: 1.4 cm LVIDs: 2.7 cm LVPWs: 1.7 cm LA Diam: 2.9 cm (2.7 - 3.8) LAESV Index (A-L): 24.27 ml/m Ao Diam: 2.9 cm (2.0 - 3.7) AV Cusp: 2.0 cm (1.5 - 2.6) MV EXCURSION: 9.718 mm (> 18.000) MV EF SLOPE: 26 mm/s (70 - 150) EPSS: 0.6 cm MV E Gaurav: 0.77 m/s MV DecT: 231 ms MV A Gaurav: 1.25 m/s MV E/A Ratio: 0.62 RAP: 5.00 mmHg RVSP: 38.20 mmHg FINDINGS -------- Sinus rhythm. This was a technically adequate study. The left ventricular size is normal. There is borderline concentric left ventricular hypertrophy. Overall left ventricular systolic function is normal with, an EF between 55 - 60 %. The right ventricle is normal in size and function. Normal LA size by volume 22+/-6 ml/m2. The right atrium is normal in size. There is mild aortic valve sclerosis. Mild mitral annular calcification present. Mild mitral regurgitation is present. Mild tricuspid regurgitation present. There is mild pulmonary hypertension. The right ventricular systolic pressure, as measured by Doppler, is 38.20mmHg. Trace/mild (physiologic) pulmonic regurgitation. The aortic root size is normal. Normal inferior vena cava with normal inspiratory collapse consistent with estimated right atrial pre ssure of 5 mmHg. There is no pericardial effusion. CONCLUSIONS -------- 1. Sinus rhythm. 2. This was a technically adequate study. 3. The left ventricular size is normal. 4. There is borderline concentric left ventricular hypertrophy. 5. Overall left ventricular systolic function is normal with, an EF between 55 - 60 %. 6. The right ventricle is normal in size and function. 7. Normal LA size by volume 22+/-6 ml/m2. 8. The right atrium is normal in size. 9. There is mild aortic valve sclerosis. 10. Mild mitral annular calcification present. 11. Mild mitral regurgitation is present. 12. Mild tricuspid regurgitation present. 13. There is mild pulmonary hypertension. 14. The right ventricular systolic pressure, as measured by Doppler, is 38.20mmHg. 15. Trace/mild (physiologic) pulmonic regurgitation. 16. The aortic root size is normal. 17. Normal inferior vena cava with normal inspiratory collapse consistent with estimated right atrial pressure of 5 mmHg. 18. There is no pericardial effusion. [employer] AISLE CASHIER: Flores Melo RDCS
[2017-09-06 11:58] VITALS: BP 146/77; PULSE 74; TEMP 97.4
[2017-09-06] MEDS: HEPARIN SODIUM,PORCINE 5,000 UNIT/ML 1 ML VIAL SQ SCH (11:58)
--- NOTE | 2017-09-06 12:22 | PN ---
PROGRESS NOTE Mrs. Holt is a 81-year-old female with a history of hypertension who presented with right eye ptosis and diplopia. She is feeling much better this morning. Her vision is better, that improved quite a bit. She has no associated dizziness. No palpitation. She has been ambulating. She was seen by Dr. Heaton as well as Dr. Aguilera. Dr. Heaton felt that her symptoms are most consistent with neuromuscular junction disorder. She had an echocardiogram that revealed preserved left ventricular size and systolic function with mild mitral and tricuspid regurgitation. She continues to be at this time on Lipitor 20 mg daily, aspirin once a day, Coreg 6.25 mg twice a day, losartan HCT 50/12.5 mg daily, Aldactone 25 mg daily. PHYSICAL EXAMINATION: Blood pressure 135 to 140 with the heart rate in the 70s. LUNGS: Clear. HEART: Regular rate and rhythm. S1, S2. No S3. No rub. ABDOMEN: Soft, nontender. EXTREMITIES: No edema. IMPRESSION: 1. Ptosis and diplopia, improving, etiology unclear. 2. History of hypertension. 3. Prior history of cardiomyopathy, that is resolved. RECOMMENDATION: From the cardiac standpoint, I will continue present therapy. She is stable to be discharged home to be followed as an outpatient. MMODL / IJN: [id number] /
--- NOTE | 2017-09-06 13:59 | MR ---
EXAMINATION TYPE: MR brain wo/w con DATE OF EXAM: 09/06/2017 COMPARISON: CT [employer]otech head and neck and CT brain dated 09/04/2017 HISTORY: Double vison, aneurysm on CT TECHNIQUE: Multiplanar, multisequence images of the brain and brainstem is performed without and with IV contras t, utilizing 7.5 mL intravenous Gadavist . FINDINGS: Diffusion weighted images demonstrate no evidence of a recent infarct or other diffusion ab normality. There is no extra-axial fluid collection. Few punctate foci of nonspecific T2/FLAIR hype rintensity are seen within the subcortical and periventricular white matter. These do not demonstrate abnormal enhancement. Patchy nonenhancing gliosis is also seen of the eitan. The ventricular system and cisternal spaces are symmetrically prominent compatible with age-related volume loss with promine nce also seen in the anterior posterior fossa. Midline structures demonstrate normal morphology. The craniocervical junction appears within normal limits. Post contrast images demonstrate no abnormal enhancement. The dural venous sinuses appear pa tent. There is marked near mucosal thickening of the maxillary sinus with near complete opacification . There is linear peripheral enhancement of this mucosal thickening suggesting acute inflammatory pro cess. Right maxillary 1.3 cm mucosal retention cyst is seen on the right. Minimal ethmoid mucosal thi ckening is also noted. Frontal sinuses and sphenoid sinuses are well aerated. There is partial opacif ication of the mastoid air cells. There is redemonstration of 3 mm fusiform dilatation of the basilar tip. Remainder of the intracrania l vasculature appears unremarkable. No abnormal optic nerve enhancement. Extraocular muscles are symm etric. No impression upon the optic chiasm. No cerebellar pontine angle mass or occipital abnormality in this patient with double vision. IMPRESSION: 1. No evidence of acute infarct, midline shift or mass effect. No abnormal intracranial enhancement. 2. 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 3. Peripherally enhancing marked left maxillary paranasal sinus disease indicative of acute inflammat ory process. 4. Mild nonspecific white matter change with no abnormally enhancing foci. 5. No evidence of impression on the optic chiasm, abnormal optic nerve enhancement, occipital abnorma lity or cerebellar pontine angle mass in this patient with double vision.
--- NOTE | 2017-09-06 14:11 | P.DS ---
Providers Date of admission: 09/04/17 11:32 Expected date of discharge: 09/06/17 Attending physician: Digna Perez Consults: 09/04/17 14:45 Consult Physician Routine Consulting Provider: Pepito Heaton Consult Reason/Comments: double vision, rt eyelid droop Do you want consulting provider notified?: Yes 09/05/17 10:48 Consult Physician Routine Consulting Provider: Dara Aguilera Consult Reason/Comments: double vision Do you want consulting provider notified?: Yes 09/05/17 10:57 Consult Physician Routine Consulting Provider: Dara Aguilera Consult Reason/Comments: Double vision Do you want consulting provider notified?: Yes 09/05/17 13:24 Consult Physician Routine Consulting Provider: Izabella Hernandez Consult Reason/Comments: known to you Do you want consulting provider notified?: Already Contacted Primary care physician: [facility] Course: This s a 81-year-old female patient of Dr. Rosa with past medical history of moderate persistent asthma, myocardial infarction without previous stenting, hypertension, gastroesophageal reflux disease, hyperlipidemia. His last hospitalization was in October of last year which time she was treated for cat bite. Patient states that she developed double vision this morning. She was fine before she went to bed last night but woke up with double vision and drooping of her right eyelid. She denies any numbness. She denies any recent illness. In general, she states she didn't feel very good yesterday but she thought it was related to stress as her sump pump failed to work. She last saw Dr. Rosa in the spring and last saw Dr. Hernandez about 3 months ago. At that time he did do carotid study and she thinks he also did echocardiogram. Patient denies having any chest pain or shortness of breath. She denies any weakness or trouble with her lower extremities. No problems with ambulating or falls. She denies having any headache but feels like she is on the verge of getting a headache. No nausea or vomiting. She denies any black or tarry stools. Patient came into [facility] emergency center for evaluation. Vital signs stable. Patient was afebrile, pulse ox 98% on room air. CBC within normal limits, electrolytes essentially normal, creatinine 0.68. Blood sugar was 114. Chest x-ray CT of the brain showed mild age-related atrophy. No acute intracranial process. Left maxillary sinusitis. Patient has been admitted to the hospital for possible CVA rule out brain aneurysm, rule out myasthenia gravis. Subsequently, CTA of the neck showed mild atherosclerotic plaque at the right carotid bulb. No hemodynamically significant stenosis on either internal carotid artery. Mild atherosclerotic narrowing at the left vertebral artery. 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 No significant stenosis, arterial occlusion or other aneurysmal change seen. 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 BRONSON, acetylcholine, vitamin B12, folate, Lyme disease testing and MUSK antibodies ordered. Consult with Dr. Heaton added. 09/05: Patient continues to have double vision and dropping right eyelid. She denies weakness, difficulty swallowing, difficulty breathing, loss of bladder or bowel control. No headache. She does feel her asthma is bothering her with cough. MRI of the brain ordered. Consult with Dr. Heaton is pending. Patient seen by cardiology and echocardiogram ordered. No sign of atrial fib. 09/06: Patient has been seen by Dr. Heaton with recommendations for follow-up in the neurology clinic. Symptoms consistent with neuromuscular junction disorder. Patient has been seen by Dr. Villela and plan for evaluation in the office this afternoon at 1 PM. MRI reveals no evidence of acute infarct, midline shift or mass effect. No abnormal intracranial enhancement. 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 Peripherally enhancing marked left maxillary. Nasal sinus disease indicative of acute inflammatory process. Mild nonspecific white matter change with no abnormality. No evidence of an optic Apple, abnormal optic nerve enhancement , occipital abnormality or cerebellar pontine angle mass in this patient with double vision. Echocardiogram reveals EF of 55-60% with borderline concentric left ventricular hypertrophy, mild mitral regurgitation, mild tricuspid regurgitation, mild pulmonary hypertension, mild pulmonary regurgitation. BRONSON is negative, vitamin B12 482, folate 16.9, triglycerides 167, cholesterol 116, LDL 46 and HDL 37. Sed rate is normal. Acetylcholine receptor antibody, Lyme antibody and musk testing are pending. T has recommended home. No need for home care. Speech therapy has identified no further needs. She will be discharged in stable condition to follow-up with Dr. Guerrero in the office this afternoon. Discharge diagnoses: 1. Presentation of blurred vision and right eyelid droop also likely due to myasthenia gravis. 2. Hypertension. 3. Moderate persistent asthma, stable without exacerbation. 4. History of myocardial infarction without stenting. 5. Gastroesophageal reflux disease. 6. Hyperlipidemia. Discharge plan: return home Impression and plan of care have been directed as dictated by the signing physician. Ava Borjas nurse practitioner acting as scribe for signing physician. Patient Condition at Discharge: Good Plan - Discharge Summary Discharge Rx Participant: Yes New Discharge Prescriptions: Continue Spironolactone [Aldactone] 25 mg PO DAILY Omeprazole 20 mg PO DAILY Cetirizine HCl [Zyrtec] 10 mg PO DAILY Carvedilol [Coreg] 6.25 mg PO DAILY Aspirin EC [Ecotrin Low Dose] 81 mg PO DAILY Montelukast [Singulair] 10 mg PO HS Losartan-Hctz 50-12.5 mg [Hyzaar 50-12.5] 1 tab PO DAILY Fluticasone/Salmeterol [Advair 100-50 Diskus] 1 puff INHALATION RT-BID Alto-3 Fatty Acids/Fish Oil [Fish Oil 1,000 mg Softgel] 1 tab PO DAILY Cholecalciferol [Vitamin D3] 1,000 unit PO DAILY Calcium/Magnesium/Zinc [Mhxtoza-Ajjjwwbpm-Keyi Tablet] 1 tab PO DAILY Vit C/E/Zn/Coppr/Lutein/Zeaxan [Preservision Areds 2 Softgel] 1 tab PO DAILY Atorvastatin [Lipitor] 20 mg PO DAILY Ubidecarenone [Co Q-10] 400 mg PO DAILY diphenhydrAMINE HCL [Benadryl] 25 mg PO HS Discharge Medication List Aspirin EC [Ecotrin Low Dose] 81 mg PO DAILY 11/09/16 [History] Carvedilol [Coreg] 6.25 mg PO DAILY 11/09/16 [History] Cetirizine HCl [Zyrtec] 10 mg PO DAILY 11/09/16 [History] Fluticasone/Salmeterol [Advair 100-50 Diskus] 1 puff INHALATION RT-BID 11/09/16 [History] Losartan-Hctz 50-12.5 mg [Hyzaar 50-12.5] 1 tab PO DAILY 11/09/16 [History] Montelukast [Singulair] 10 mg PO HS 11/09/16 [History] Omeprazole 20 mg PO DAILY 11/09/16 [History] Spironolactone [Aldactone] 25 mg PO DAILY 11/09/16 [History] Atorvastatin [Lipitor] 20 mg PO DAILY 09/04/17 [History] Calcium/Magnesium/Zinc [Ezebvon-Krvejrkie-Zymo Tablet] 1 tab PO DAILY 09/04/17 [ History] Cholecalciferol [Vitamin D3] 1,000 unit PO DAILY 09/04/17 [History] Alto-3 Fatty Acids/Fish Oil [Fish Oil 1,000 mg Softgel] 1 tab PO DAILY [History] Ubidecarenone [Co Q-10] 400 mg PO DAILY 09/04/17 [History] Vit C/E/Zn/Coppr/Lutein/Zeaxan [Preservision Areds 2 Softgel] 1 tab PO DAILY [History] diphenhydrAMINE HCL [Benadryl] 25 mg PO HS 09/04/17 [History] Follow up Appointment(s)/Referral(s): Dara Aguilera MD [STAFF PHYSICIAN] - 09/06/17 2:10 pm (Appointment for Saturday.1300 09/06/2017 cancelled. Yolanda Aguilera. ) Pepito Heaton MD [STAFF PHYSICIAN] - 2 Weeks (offices will call with an appointment date and time.) Ivan Rosa MD [Primary Care Provider] - 09/16/17 1:00 pm (Saturday) Patient Instructions/Handouts: Myasthenia Gravis (DC) Discharge Disposition: HOME SELF-CARE
== END 2017-09-06 14:20 | disposition home or self-care (01) | DRG 57 ==
LOC: EC 08:34 → 6SEL 11:32
PROVIDERS: ADMIT Internal Medicine; ATTEND Internal Medicine
DX: G70.00 Myasthenia gravis without (acute) exacerbation (principal); E78.5 Hyperlipidemia, unspecified; I08.1 Rheumatic disorders of both mitral and tricuspid valves; I10 Essential (primary) hypertension; I25.2 Old myocardial infarction; I27.20 Pulmonary hypertension, unspecified; I44.7 Left bundle-branch block, unspecified; I67.1 Cerebral aneurysm, nonruptured; J32.0 Chronic maxillary sinusitis; J45.40 Moderate persistent asthma, uncomplicated; K21.9 Gastro-esophageal reflux disease without esophagitis; Z79.899 Other long term (current) drug therapy; Z81.8 Family history of other mental and behavioral disorders; Z87.891 Personal history of nicotine dependence; Z90.710 Acquired absence of both cervix and uterus; Z98.42 Cataract extraction status, left eye; Z98.41 Cataract extraction status, right eye; Z96.1 Presence of intraocular lens; Z96.60 Presence of unspecified orthopedic joint implant; Z82.49 Family history of ischemic heart disease and other diseases of the circulatory system; Z84.1 Family history of disorders of kidney and ureter; Z88.1 Allergy status to other antibiotic agents; Z79.82 Long term (current) use of aspirin
CPT/HCPCS: 36415; 70450; 70496; 70498; 70553; 71046; 80053; 80061; 81003; 82550; 82553; 82607; 82746; 83519; 83735; 84484; 85025; 85027; 85610; 85652; 85730; 86038; 86618; 93005; 93306; 94640; 96360; 96361; 96372; 99285

== ENCOUNTER → 2019-09-28 | Outpatient (CLI) | payer MEDICARE ==
--- NOTE | 2019-09-29 07:55 | MM ---
Reason for exam: additional evaluation requested from prior study. Last mammogram was performed 2 years and 1 month ago. History: Patient is postmenopausal. Family history of breast cancer in aunt at age 84. Benign stereotactic core biopsy of the left breast, May 09, 1999. Core biopsy of the left breast. Took estrogen for 18 years. Physical Findings: Nurse did not find any significant physical abnormalities on exam. MG 3D Diag Mammo W/Cad VINCE Bilateral CC and MLO view(s) were taken. Prior study comparison: August 20, 2017, bilateral MG 3d screening mammo w/cad. April 06, 2016, bilateral MG 3d screening mammo w/cad. There are scattered fibroglandular densities. Previous mammotome biopsy in the left breast. There is chronic nodularity in the right breast. Benign oil cyst on the left. No significant new findings when compared with previous films. These results were verbally communicated with the patient and result sheet given to the patient on 09/28/19. ASSESSMENT: Incomplete: need additional imaging evaluation, BI-RAD 0 RECOMMENDATION: Ultrasound of the left breast. (at the patient palpated site of palpable abnormality)
--- NOTE | 2019-09-29 07:59 | USB ---
Reason for exam: additional evaluation requested from abnormal screening. History: Patient is postmenopausal. Family history of breast cancer in aunt at age 84. Benign stereotactic core biopsy of the left breast, May 09, 1999. Core biopsy of the left breast. Took estrogen for 18 years. US Breast Limited LT Technologist: Dawn Badillo Left limited breast ultrasound including focal area of concern, retroareolar and axilla demonstrates no cystic or solid lesion seen. Scanned 9-12 o'clock. Scanning included the site of patient directed abnormality. The nurse did not feel a suspicious finding. These results were verbally communicated with the patient and result sheet given to the patient on 09/28/19. ASSESSMENT: Benign, BI-RAD 2 RECOMMENDATION: Routine screening mammogram of both breasts in 1 year. Manage on a clinical basis with regard to any suspicious palpable abnormality.
== END | disposition home or self-care (01) ==
LOC: RADMAMWWP 14:10
PROVIDERS: ATTEND Internal Medicine
DX: N63.20 Unspecified lump in the left breast, unspecified quadrant (principal); R92.8 Other abnormal and inconclusive findings on diagnostic imaging of breast
CPT/HCPCS: 77066; 76642; G0279; 77062

== ENCOUNTER 2022-02-12 10:32 | Emergency (ER) | payer MEDICARE ==
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
[2022-02-12 12:00] LABS: Basophils # (A) 0.1 k/uL (0-0.2); Basophils % (A) 1 %; Eosinophils # (A) 0.1 k/uL (0-0.7); Eosinophils % (A) 1 %; HCT 34.4 % (34.0-46.0); HGB 12.5 gm/dL (11.4-16.0); Lymphocytes # (A) 1.2 k/uL (1.0-4.8); Lymphocytes % (A) 10 %; MCH 32.9 pg (25.0-35.0); MCHC 36.5 g/dL (31.0-37.0); MCV 90.2 fL (80.0-100.0); Mean Platelet Volume 7.6; Monocytes # (A) 0.8 k/uL (0-1.0); Monocytes % (A) 7 %; Neutrophils # (A) 9.5 k/uL (1.3-7.7); Neutrophils % (A) 79 %; Platelet Count 246 k/uL (150-450); Poikilocytosis Slight; RBC 3.81 m/uL (3.80-5.40); RDW 15.4 % (11.5-15.5)
[2022-02-12 12:11] LABS: ALT 17 U/L (4-34); AST 28 U/L (14-36); Acetaminophen <10.0 ug/mL; African American GFR (CKD) 74 (>60 ml/min/1.73 sqM); Alkaline Phosphatase 116 U/L (38-126); Anion Gap 7 mmol/L; Blood Urea Nitrogen 16 mg/dL (7-17); Calcium 9.1 mg/dL (8.4-10.2); Carbon Dioxide 21 mmol/L (22-30); Chloride 108 mmol/L (98-107); Glucose 106 mg/dL (74-99); Non-African American GFR(CKD) 64 (>60 ml/min/1.73 sqM); Sodium 136 mmol/L (137-145); Total Bilirubin 0.5 mg/dL (0.2-1.3); Total Protein 6.5 g/dL (6.3-8.2)
[2022-02-12 14:10] VITALS: BP 158/62; PULSE 65; RESP 18; TEMP 97
== END 2022-02-12 13:30 | disposition home or self-care (01) ==
LOC: EC 10:32
DX: T39.1X5A Adverse effect of 4-Aminophenol derivatives, initial encounter (principal); J45.909 Unspecified asthma, uncomplicated; K21.9 Gastro-esophageal reflux disease without esophagitis; E78.5 Hyperlipidemia, unspecified; I10 Essential (primary) hypertension; I25.2 Old myocardial infarction; Z88.1 Allergy status to other antibiotic agents; Z79.82 Long term (current) use of aspirin; Z79.899 Other long term (current) drug therapy
CPT/HCPCS: 36415; 80053; 80143; 85025; 99284

== ENCOUNTER 2022-02-19 19:38 | Emergency (ER) | payer MEDICARE ==
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
[2022-02-19 22:32] VITALS: BP 175/81; PULSE 58; RESP 18
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
== END 2022-02-19 22:55 | disposition left against medical advice (07) ==
LOC: EC 19:38
DX: S12.000A Unspecified displaced fracture of first cervical vertebra, initial encounter for closed fracture (principal); J45.909 Unspecified asthma, uncomplicated; K21.9 Gastro-esophageal reflux disease without esophagitis; E78.5 Hyperlipidemia, unspecified; I10 Essential (primary) hypertension; I25.2 Old myocardial infarction; Z88.1 Allergy status to other antibiotic agents; Z79.82 Long term (current) use of aspirin; Z79.899 Other long term (current) drug therapy; Z53.29 Procedure and treatment not carried out because of patient's decision for other reasons; W18.2XXA Fall in (into) shower or empty bathtub, initial encounter; Y92.009 Unspecified place in unspecified non-institutional (private) residence as the place of occurrence of the external cause
CPT/HCPCS: 70450; 72125; 99284

== ENCOUNTER → 2022-06-13 | Outpatient (CLI) | payer OTHER, MEDICARE ==
--- NOTE | 2022-06-13 11:32 | CT ---
EXAMINATION TYPE: CT cervical spine wo con DATE OF EXAM: 06/13/2022 COMPARISON: CT cervical spine February 19, 2022 HISTORY: Follow up for displaced fracture of C1 and C2. CT DLP: 498.6 mGycm. Automated Exposure Control for Dose Reduction was Utilized. TECHNIQUE: CT scan of the cervical spine is obtained without contrast, axial images are obtained, sa gittal and coronal reformatted images are also reviewed. FINDINGS: Cervical spine is visualized in its entirety from C1 through upper thoracic levels, there i s persistent transverse displaced fracture through the base of the odontoid with slight posterior dis placement and more prominent posterior angulation of the superior bony fragment. Some interval healin g is present with lucency less well visualized. There is some interval healing of bilateral comminute d fractures through the right and left anterior ring at C1 level axial image 24 for reference. There is complete healing of the posterior right C1 fracture seen on prior study image 47 in retrospect. Al ignment is stable at this level. Remainder of cervical spine shows vertebral body heights to appear intact. Moderate to severe disc sp case narrowing C5-C6 and C6-C7 levels with [id number] spurring is redemonstrated. Slight grade 1 anterolisthesis C4 on C5 is redemonstrated. Lung apices show no pneumothorax. Thyroid gland is unrem arkable. Worsening opacification of the bilateral mastoid air cells is present. Increasing and/or new soft tissue density surrounding bilateral middle ear ossicles more prominent on the left. IMPRESSION: Healing displaced type II odontoid fracture. Healing Fredo type fracture C1 level as detailed above. Alignment is stable. No new fractures are seen. Possible bilateral mastoiditis with middle ear infection spread. Correlate clinically.
== END | disposition home or self-care (01) ==
LOC: RADCTMAIN 10:51
PROVIDERS: ATTEND Surgery
DX: S12.000D Unspecified displaced fracture of first cervical vertebra, subsequent encounter for fracture with routine healing (principal); S12.112D Nondisplaced Type II dens fracture, subsequent encounter for fracture with routine healing
CPT/HCPCS: 72125

== ENCOUNTER → 2022-11-14 | Outpatient (CLI) | payer OTHER, MEDICARE ==
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
== END | disposition home or self-care (01) ==
LOC: RADCTMAIN 10:40
PROVIDERS: ATTEND Surgery
DX: S12.101G Unspecified nondisplaced fracture of second cervical vertebra, subsequent encounter for fracture with delayed healing (principal); S12.000G Unspecified displaced fracture of first cervical vertebra, subsequent encounter for fracture with delayed healing; M50.321 Other cervical disc degeneration at C4-C5 level; H74.8X3 Other specified disorders of middle ear and mastoid, bilateral; X58.XXXD Exposure to other specified factors, subsequent encounter
CPT/HCPCS: 72125

== ENCOUNTER → 2023-03-04 | Outpatient (CLI) | payer MEDICARE ==
[2023-03-04 15:18] LABS: Chol/HDL Ratio 2.57 Ratio
[2023-03-04 15:19] LABS: ALT 13 U/L (8-44); AST 19 U/L (13-35); Albumin 4.2 g/dL (3.8-4.9); Alkaline Phosphatase 220 U/L (41-126); Blood Urea Nitrogen 23.8 mg/dL (9.0-27.0); Calcium 9.8 mg/dL (8.7-10.3); Carbon Dioxide 22.8 mmol/L (21.6-31.8); Chloride 106 mmol/L (96-109); Globulin 2.1 g/dL (1.6-3.3); Glucose 122 mg/dL (70-110); LDL Cholesterol,Calculated 60.1 mg/dL (0.0-131.0); Potassium 4.7 mmol/L (3.5-5.5); Sodium 139 mmol/L (135-145); Total Bilirubin 0.7 mg/dL (0.3-1.2); Total Protein 6.3 g/dL (6.2-8.2)
== END | disposition home or self-care (01) ==
LOC: LABWHC1 07:50
PROVIDERS: ATTEND Internal Medicine Interventional Cardiology
DX: I47.20 Ventricular tachycardia, unspecified (principal); E78.2 Mixed hyperlipidemia
CPT/HCPCS: 36415; 80053; 80061; 84443

== ENCOUNTER 2023-04-12 18:17 | Inpatient (IN) | payer MEDICARE ==
[2023-04-12] MEDS: ALBUTEROL NEBULIZED 2.5 MG/3 ML INHALATION STA (18:25)
[2023-04-12] MEDS: IPRATROPIUM 0.5 MG/2.5 ML NEBU INHALATION STA (18:25)
--- NOTE | 2023-04-12 18:26 | ED ---
General Adult HPI - General Stated complaint: difficulty breathing Time Seen by Provider: 04/12/23 18:20 Source: patient, RN notes reviewed, old records reviewed - History of Present Illness Initial comments: 87-year-old female presenting with increased dyspnea. Patient found by paramedics to be hypoxic in the 70s. She has a history of asthma and has had an increased productive cough over the past several days. She denies fever. Denies central chest pain. Denies history of heart failure but states she has had myocardial infarction in the past. Patient was placed on CPAP for work of breathing and oxygenation during transport. - Related Data Home Medications Medication Instructions Recorded Confirmed Aspirin EC [Ecotrin Low Dose] 81 mg PO DAILY 11/09/16 09/04/17 Cetirizine HCl [Zyrtec] 10 mg PO DAILY 11/09/16 09/04/17 Fluticasone Propion/Salmeterol 1 puff INHALATION RT-BID 11/09/16 09/04/17 [Advair 100-50 Diskus] Losartan-Hctz 50-12.5 mg [Hyzaar 1 tab PO DAILY 11/09/16 09/04/17 50-12.5] Montelukast [Singulair] 10 mg PO HS 11/09/16 09/04/17 Omeprazole 20 mg PO DAILY 11/09/16 09/04/17 Spironolactone [Aldactone] 25 mg PO DAILY 11/09/16 09/04/17 carvediloL [Coreg] 6.25 mg PO DAILY 11/09/16 09/04/17 Atorvastatin [Lipitor] 20 mg PO DAILY 09/04/17 09/04/17 Calcium/Magnesium/Zinc 1 tab PO DAILY 09/04/17 09/04/17 [Oyahmtg-Dslkvgcta-Hesa Tablet] Cholecalciferol [Vitamin D3 (25 1,000 unit PO DAILY 09/04/17 09/04/17 Mcg = 1000 Iu)] [place]-3 Fatty Acids/Fish Oil [Fish 1 tab PO DAILY 09/04/17 09/04/17 Oil 1,000 mg Softgel] Ubidecarenone [Co Q-10] 400 mg PO DAILY 09/04/17 09/04/17 Vit C/E/Zn/Coppr/Lutein/Zeaxan 1 tab PO DAILY 09/04/17 09/04/17 [Preservision Areds 2 Softgel] diphenhydrAMINE HCL [Benadryl] 25 mg PO HS 09/04/17 09/04/17 Allergies Allergy/AdvReac Type Severity Reaction Status Date / Time cephalexin monohydrate Allergy Chest Pain Verified 04/12/23 18:26 [From Keflex] Review of Systems ROS Statement: Those systems with pertinent positive or pertinent negative responses have been documented in the HPI. ROS Other: All systems not noted in ROS Statement are negative. Past Medical History Past Medical History: Asthma, GERD/Reflux, Hyperlipidemia, Hypertension, Myocardial Infarction ([place]) Additional Past Medical History / Comment(s): Moderate persistent asthma, past bronchitis, cat bit developed cellulitis rt lower ext. hx silent mi, migraines, cataracts(sx), past uterine fibroids(sx), brain bleed and cerical fracture 01/02/22 Last Myocardial Infarction Date:: unknown History of Any Multi-Drug Resistant Organisms: None Reported Past Surgical History: Hysterectomy, Joint Replacement, Tonsillectomy Additional Past Surgical History / Comment(s): Bilateral cataract removal and intraocular lens implants done 2-3 years ago, rt knee acl repair, colonoscopy/polypectomy-benign., egd, lt breast bx-neg, 2 previous dental impl ant and inprocess of 3rd one. Past Psychological History: No Psychological Hx Reported Smoking Status: Never smoker Past Alcohol Use History: Occasional Past Drug Use History: None Reported - Past Family History Son(s) Family Medical History: Hyperlipidemia Additional Family Medical History / Comment(s): Patient has one son and one daughter with no major medical problems. Father Additional Family Medical History / Comment(s): Father at age 76 from renal failure. secondary to "ankylosing spondylitis". Mother Additional Family Medical History / Comment(s): Mother in hursing home at age 100. hx bipolar depression, schizophrenia, dementia General Exam General appearance: alert, in distress Head exam: Present: atraumatic, normocephalic Eye exam: Present: normal appearance, PERRL ENT exam: Present: normal exam Neck exam: Present: normal inspection. Absent: tenderness, meningismus Respiratory exam: Present: respiratory distress, wheezes, accessory muscle use, decreased breath sounds, prolonged expiratory Cardiovascular Exam: Present: regular rate, normal rhythm GI/Abdominal exam: Present: soft. Absent: distended, tenderness, guarding Extremities exam: Present: pedal edema. Absent: calf tenderness Neurological exam: Present: alert, oriented X3, CN II-XII intact. Absent: motor sensory deficit Psychiatric exam: Present: normal affect, normal mood Skin exam: Present: warm, dry, intact. Absent: cyanosis, diaphoretic Course Vital Signs 04/12/23 04/12/23 04/12/23 18:22 18:26 18:27 Pulse Rate 65 Respiratory 24 30 H Rate Blood Pressure 153/75 O2 Sat by Pulse 99 Oximetry Fraction of 60 Inspired Oxygen (FIO2) 04/12/23 04/12/23 04/12/23 18:30 18:33 18:52 Pulse Rate 62 61 Respiratory Rate Blood Pressure O2 Sat by Pulse Oximetry Fraction of 60 Inspired Oxygen (FIO2) 04/12/23 04/12/23 18:53 19:39 Pulse Rate 65 Respiratory 17 Rate Blood Pressure 141/73 O2 Sat by Pulse 99 Oximetry Fraction of 50 Inspired Oxygen (FIO2) - Reevaluation(s) Reevaluation #1: 04/12/23 19:45 Viral panel pending Medical Decision Making - Medical Decision Making Was pt. sent in by a medical professional or institution (, PA, VOCATIONAL REHABILITATION SUPERVISOR, urgent care, hospital, or longterm...) When possible be specific @ -No Did you speak to anyone other than the patient for history (EMS, parent, family, police, friend...)? What history was obtained from this source @ -No Did you review nursing and triage notes (agree or disagree)? Why? @ -I reviewed and agree with nursing and triage notes Were old charts reviewed (outside hosp., previous admission, EMS record, old EKG, old radiological studies, urgent care reports/EKG's, longterm records)? Report findings @ -No old charts were reviewed Differential Diagnosis (chest pain, altered mental status, abdominal pain women, abdominal pain men, vaginal bleeding, weakness, fever, dyspnea, syncope, headache, dizziness, GI bleed, back pain, seizure, CVA, palpatations, mental health, musculoskeletal)? @ -Not applicable EKG interpreted by me (3pts min.). @ -Sinus rhythm, left bundle branch block, rate of 62, CA interval 185, QRS duration 142, QTc 462 history of left bundle branch block X-rays interpreted by me (1pt min.). @Chest x-ray without acute process, no focal pneumonia, no pneumothorax CT interpreted by me (1pt min.). @ -None done U/S interpreted by me (1pt. min.). @ -None done What testing was considered but not performed or refused? (CT, X-rays, U/S, labs)? Why? @ -None What meds were considered but not given or refused? Why? @ -None Did you discuss the management of the patient with other professionals (professionals i.e. DrJoie, PA, VOCATIONAL REHABILITATION SUPERVISOR, lab, RT, psych nurse, social media marketing specialist, travel ot, teacher, fisheries officer, special education case manager)? Give summary @ -Dr. Mojica Was smoking cessation discussed for >3mins.? @ -No Was critical care preformed (if so, how long)? @ -Yes 35 minutes Were there social determinants of health that impacted care today? How? (Homelessness, low income, unemployed, alcoholism, drug addiction, transportation, low edu. Level, literacy, decrease access to med. care, half-way, rehab)? @ -No Was there de-escalation of care discussed even if they declined (Discuss DNR or withdrawal of care, Hospice)? DNR status @ -No What co-morbidities impacted this encounter? (DM, HTN, Smoking, COPD, CAD, Cancer, CVA, ARF, Chemo, Hep., AIDS, mental health diagnosis, sleep apnea, morbid obesity)? @ -Asthma Was patient admitted / discharged? Hospital course, mention meds given and route, prescriptions, significant lab abnormalities, going to OR and other pertinent info. @ -87-year-old female presenting in extremis, hypoxic with decreased air entry, bilateral wheezing. Patient was found to be hypoxic in the 70s and required CPAP during transport. She is transition to BiPAP in the emergency department. She does have a history of asthma. She is given albuterol, Atrovent, steroids. Chest x-ray is clear without focal pneumonia, no acute findings. She has a normal CBC, normal CMP, negative troponin, negative BNP. She will require admission for asthma exacerbation, likely COPD. Case discussed with the admitting physician Dr. Mojica who will admit. Undiagnosed new problem with uncertain prognosis? @ -No Drug Therapy requiring intensive monitoring for toxicity (Heparin, Nitro, Insu americo, Cardizem)? @ -No Were any procedures done? @ -No Diagnosis/symptom? @ -[COPD exacerbation Acute, or Chronic, or Acute on Chronic? @ -Acute Uncomplicated (without systemic symptoms) or Complicated (systemic symptoms)? @ -[default Side effects of treatment? @ -No Exacerbation, Progression, or Severe Exacerbation? @ -No Poses a threat to life or bodily function? How? (Chest pain, [place], [place], pneumonia, PE, COPD, DKA, ARF, appy, cholecystitis, CVA, Diverticulitis, Homicidal, Suicidal, threat to staff... and all critical care pts) @ -Yes respiratory failure - Lab Data Result diagrams: 04/12/23 18:28 04/12/23 18:28 Lab Results 04/12/23 04/12/23 04/12/23 Range/Units 18:28 18:28 18:28 WBC 9.2 (3.8-10.6) k/uL RBC 3.87 (3.80-5.40) m/uL Hgb 12.7 (11.4-16.0) gm/dL Hct 37.4 (34.0-46.0) % MCV 96.5 (80.0-100.0) fL MCH 32.7 (25.0-35.0) pg MCHC 33.9 (31.0-37.0) g/dL RDW 14.6 (11.5-15.5) % Plt Count 226 (150-450) k/uL MPV 7.4 Neutrophils % 66 % Lymphocytes % 17 % Monocytes % 7 % Eosinophils % 7 % Basophils % 1 % Neutrophils # 6.0 (1.3-7.7) k/uL Lymphocytes # 1.6 (1.0-4.8) k/uL Monocytes # 0.6 (0-1.0) k/uL Eosinophils # 0.6 (0-0.7) k/uL Basophils # 0.1 (0-0.2) k/uL Poikilocytosis Slight PT 10.9 (10.0-12.5) sec INR 1.0 (<1.2) APTT 17.6 L (22.0-30.0) sec Sodium 139 (137-145) mmol/L Potassium 4.3 (3.5-5.1) mmol/L Chloride 112 H (98-107) mmol/L Carbon Dioxide 22 (22-30) mmol/L Anion Gap 5 mmol/L BUN 22 H (7-17) mg/dL Creatinine 0.88 (0.52-1.04) mg/dL Est GFR (CKD-EPI)AfAm 70 (>60 ml/min/1.73 sqM) Est GFR (CKD-EPI)NonAf 61 (>60 ml/min/1.73 sqM) Glucose 124 H (74-99) mg/dL Calcium 9.3 (8.4-10.2) mg/dL Magnesium 1.9 (1.6-2.3) mg/dL Total Bilirubin 0.8 (0.2-1.3) mg/dL AST 31 (14-36) U/L ALT 13 (4-34) U/L Alkaline Phosphatase 187 H (38-126) U/L Troponin I (0.000-0.034) ng/mL NT-Pro-B Natriuret Pep 389 pg/mL Total Protein 6.3 (6.3-8.2) g/dL Albumin 4.0 (3.5-5.0) g/dL 04/12/23 Range/Units 18:28 WBC (3.8-10.6) k/uL RBC (3.80-5.40) m/uL Hgb (11.4-16.0) gm/dL Hct (34.0-46.0) % MCV (80.0-100.0) fL MCH (25.0-35.0) pg MCHC (31.0-37.0) g/dL RDW (11.5-15.5) % Plt Count (150-450) k/uL MPV Neutrophils % % Lymphocytes % % Monocytes % % Eosinophils % % Basophils % % Neutrophils # (1.3-7.7) k/uL Lymphocytes # (1.0-4.8) k/uL Monocytes # (0-1.0) k/uL Eosinophils # (0-0.7) k/uL Basophils # (0-0.2) k/uL Poikilocytosis PT (10.0-12.5) sec INR (<1.2) APTT (22.0-30.0) sec Sodium (137-145) mmol/L Potassium (3.5-5.1) mmol/L Chloride (98-107) mmol/L Carbon Dioxide (22-30) mmol/L Anion Gap mmol/L BUN (7-17) mg/dL Creatinine (0.52-1.04) mg/dL Est GFR (CKD-EPI)AfAm (>60 ml/min/1.73 sqM) Est GFR (CKD-EPI)NonAf (>60 ml/min/1.73 sqM) Glucose (74-99) mg/dL Calcium (8.4-10.2) mg/dL Magnesium (1.6-2.3) mg/dL Total Bilirubin (0.2-1.3) mg/dL AST (14-36) U/L ALT (4-34) U/L Alkaline Phosphatase (38-126) U/L Troponin I <0.012 (0.000-0.034) ng/mL NT-Pro-B Natriuret Pep pg/mL Total Protein (6.3-8.2) g/dL Albumin (3.5-5.0) g/dL Critical Care Time Critical Care Time: Yes Total Critical Care Time: 35 Disposition Clinical Impression: Acute exacerbation of chronic obstructive pulmonary disease, Asthma with acute exacerbation Disposition: ADMITTED IP TO THIS HOSP Condition: Stable Is patient prescribed a controlled substance at d/c from ED?: No Referrals: Blaise Mojica MD [Primary Care Provider] - 1-2 days Time of Disposition: 19:46
[2023-04-12] MEDS: methylPREDNISolone SOD SUCCI 125 MG/2 ML VIAL IV STA (18:31)
[2023-04-12 18:48] LABS: Basophils # (A) 0.1 k/uL (0-0.2); Basophils % (A) 1 %; Eosinophils # (A) 0.6 k/uL (0-0.7); Eosinophils % (A) 7 %; HCT 37.4 % (34.0-46.0); HGB 12.7 gm/dL (11.4-16.0); Lymphocytes # (A) 1.6 k/uL (1.0-4.8); Lymphocytes % (A) 17 %; MCH 32.7 pg (25.0-35.0); MCHC 33.9 g/dL (31.0-37.0); MCV 96.5 fL (80.0-100.0); Mean Platelet Volume 7.4; Monocytes # (A) 0.6 k/uL (0-1.0); Monocytes % (A) 7 %; Neutrophils % (A) 66 %; Platelet Count 226 k/uL (150-450); Poikilocytosis Slight; RBC 3.87 m/uL (3.80-5.40); RDW 14.6 % (11.5-15.5); WBC 9.2 k/uL (3.8-10.6)
--- NOTE | 2023-04-12 18:59 | XR ---
EXAMINATION TYPE: XR chest 1V portable DATE OF EXAM: 04/12/2023 6:47 PM CLINICAL INDICATION:Female, 87 years old with history of rina; COMPARISON: Chest radiographs from 09/04/2017 TECHNIQUE: XR chest 1V portable Frontal view of the chest. FINDINGS: Lungs/Pleura: There is no evidence of pleural effusion, focal consolidation, or pneumothorax. Pulmonary vascularity: Unremarkable. Heart/mediastinum: Cardiomediastinal silhouette is unremarkable. Musculoskeletal: No acute osseous pathology. IMPRESSION: 1. No acute cardiopulmonary disease process. 2. COPD changes.
[2023-04-12 19:00] LABS: ALT 13 U/L (4-34); AST 31 U/L (14-36); African American GFR (CKD) 70 (>60 ml/min/1.73 sqM); Alkaline Phosphatase 187 U/L (38-126); Anion Gap 5 mmol/L; Blood Urea Nitrogen 22 mg/dL (7-17); Calcium 9.3 mg/dL (8.4-10.2); Carbon Dioxide 22 mmol/L (22-30); Chloride 112 mmol/L (98-107); Glucose 124 mg/dL (74-99); Magnesium 1.9 mg/dL (1.6-2.3); Non-African American GFR(CKD) 61 (>60 ml/min/1.73 sqM); Potassium 4.3 mmol/L (3.5-5.1); Sodium 139 mmol/L (137-145); Total Bilirubin 0.8 mg/dL (0.2-1.3); Total Protein 6.3 g/dL (6.3-8.2)
[2023-04-12 19:02] LABS: Prothrombin Time 10.9 sec (10.0-12.5)
[2023-04-12 19:08] LABS: NT-Pro-B-Type Natriuretic Pept 389 pg/mL
[2023-04-12 19:32] LABS: Partial Thromboplastin Time 17.6 sec (22.0-30.0)
[2023-04-12] MEDS ORDERED: IPRATROPIUM-ALBUTEROL 3 ML NEB INHALATION PRN (19:44)
[2023-04-12] MEDS ORDERED: NALOXONE 0.4 MG/ML 1 ML VIAL IVP PRN (19:44)
[2023-04-12] MEDS: IPRATROPIUM-ALBUTEROL 3 ML NEB INHALATION SCH (21:11)
[2023-04-12] MEDS: methylPREDNISolone SOD SUCCI 125 MG/2 ML VIAL IV SCH (23:23)
[2023-04-13] MEDS: AZITHROMYCIN 500 MG TAB PO SCH (08:43)
[2023-04-13 11:44] LABS: Glucose,Whole Blood 314 mg/dL (70-110)
[2023-04-13] MEDS ORDERED: DEXTROSE 50% SYRINGE 50 ML IVP PRN ×2 (11:46)
[2023-04-13] MEDS: INSULIN ASPART (NovoLOG) 100 UNIT/ML VIAL SQ SCH (12:00)
--- NOTE | 2023-04-13 13:31 | HP ---
HISTORY AND PHYSICAL 87-year-old female came in, hypoxemia in the 70s, had asthma exacerbation. Denies fever or chills. The patient has CPAP at home, oxygen during the transfer here. Denies heart failure. She has had myocardial infarction in the past. HOME MEDICINES: 1. Aspirin 81 daily. 2. Zyrtec 10 mg daily. 3. Advair 100/50 one puff b.i.d. 4. Losartan 50/12.5 daily. 5. Singulair 10 mg daily. 6. Omeprazole 20 mg daily. 7. Aldactone 25 daily. 8. Coreg 6.25 daily. 9. Lipitor 20 daily. 10.Benadryl 25 at night. PAST MEDICAL HISTORY: Persistent asthma, migraines, cataracts. She had brain bleed, cervical fracture. PAST SURGICAL HISTORY: Hysterectomy, tonsillectomy, bilateral cataract removal, interocular lens, colonoscopy. FAMILY HISTORY: Dyslipidemia, ankylosis spondylitis in father PHYSICAL EXAMINATION: VITAL SIGNS: Blood pressure 150s over 70s, O2 97, she is on 60% oxygen, pulse 66. LUNGS: Scattered wheeze and rhonchi. Prolonged . HEART: S1-S2. PSYCH: Fair mood and affect. SKIN: Warm, dry, intact. HEENT: Pupils equal, round, and reactive. NEUROLOGIC: Alert and oriented x3. ASSESSMENT AND PLAN: Acute hypoxemic respiratory failure, chronic obstructive pulmonary disease exacerbation, tracheobronchitis. Get Pulmonary consult. IV steroids, IV antibiotics. Check for pneumonia. PROGNOSIS: Guarded. Please see further orders. MMODL / IJN: [id number] /
--- NOTE | 2023-04-13 14:50 | CT ---
EXAMINATION TYPE: CT chest wo con CT DLP: 395.9 mGycm, Automated exposure control for dose reduction was used. DATE OF EXAM: 04/13/2023 2:40 PM COMPARISON: None CLINICAL INDICATION:Female, 87 years old with history of hypoxia; PHH, hypoxia, cough TECHNIQUE: Multiple axial images were obtained through the chest. Sagittal and coronal reformats were created for review. Contrast used: mL of (None if empty) Oral contrast used: (None if empty) FINDINGS: LUNGS/ PLEURA: No focal consolidation, pneumothorax or pleural effusion. There is streaky atelectasis in the lung bases. AIRWAY: Patent and unremarkable. HEART: Heart is enlarged for size. And aortic valve leaflet calcifications. MEDIASTINUM: No gross evidence of adenopathy. VASCULATURE: No aortic aneurysm. MUSCULOSKELETAL: Moderate disc degeneration changes are present throughout the thoracolumbar spine. S uspected intramuscular lipoma within the right infraspinatus muscle measuring at least 7.1 x 3.5 cm. SOFT TISSUES/LYMPH NODES: Unremarkable. LOWER NECK: No significant findings. UPPER ABDOMEN: No significant findings. IMPRESSION: 1. No evidence for acute process. 2. Mild cardiomegaly. 3. Moderate degeneration changes of the spine. 4. 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 Follow up recommendations for incidental pulmonary nodules, if there are any, are per [employer] [employer] or [employer]. https://radiopaedia.org/articles/beenzwhsvp-[email or web address]?lang=us
--- NOTE | 2023-04-13 15:45 | CT ---
EXAMINATION TYPE: CT angio chest CT DLP: 535 mGycm, Automated exposure control for dose reduction was used. DATE OF EXAM: 04/13/2023 3:30 PM COMPARISON: CT same day. CLINICAL INDICATION:Female, 87 years old with history of d=dimer high; High D-dimer. TECHNIQUE/CONTRAST: CTA scan of the thorax is performed with IV Contrast, patient injected with 100 ml mL of Isovue 300, MIP images are created and reviewed these are created on a separate workstation.. FINDINGS: Pulmonary Artery: There is no evidence for a filling defect within the pulmonary vasculature to sugge st acute pulmonary embolism. The pulmonary artery is of normal size. LUNGS/ PLEURA: No focal consolidation, pneumothorax or pleural effusion. There is streaky atelectasis in the lung bases. AIRWAY: Patent and unremarkable. HEART: Heart is enlarged for size. Aortic valve leaflet calcifications. MEDIASTINUM: No gross evidence of adenopathy. VASCULATURE: No aortic aneurysm. MUSCULOSKELETAL: Moderate disc degeneration changes are present throughout the thoracolumbar spine. S uspected intramuscular lipoma within the right infraspinatus muscle measuring at least 7.1 x 3.5 cm. SOFT TISSUES/LYMPH NODES: Unremarkable. LOWER NECK: No significant findings. UPPER ABDOMEN: No significant findings. IMPRESSION: 1. No evidence of pulmonary embolism. 2. Mild cardiomegaly. 3. Moderate degeneration changes of the spine. 4. 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
[2023-04-13 16:26] LABS: Glucose,Whole Blood 294 mg/dL (70-110)
[2023-04-13] MEDS: METOPROLOL TARTRATE 50 MG TAB PO SCH (19:33)
[2023-04-13] MEDS: FAMOTIDINE 20 MG TAB PO SCH (19:33)
[2023-04-13] MEDS: ATORVASTATIN 20 MG TAB PO SCH (19:33)
[2023-04-13] MEDS ORDERED: NON FORMULARY DRUG (Ipratropium/Albuter 20-100mcg 120 PUFF Each) INHALATION SCH (20:00)
[2023-04-13 20:40] LABS: Glucose,Whole Blood 275 mg/dL (70-110)
[2023-04-14 06:16] LABS: Glucose,Whole Blood 207 mg/dL (70-110)
[2023-04-14] MEDS: PYRIDOSTIGMINE 60 MG TAB PO SCH (08:12)
[2023-04-14] MEDS: LORATADINE 10 MG TAB PO SCH (08:12)
[2023-04-14] MEDS: SPIRONOLACTONE 25 MG TAB PO SCH (08:12)
--- NOTE | 2023-04-14 11:17 | XR ---
EXAMINATION TYPE: XR chest 2V DATE OF EXAM: 04/14/2023 6:23 AM CLINICAL INDICATION:Female, 87 years old with history of follow up, copd, shortness of breath; H COMPARISON: Portable chest 04/12/2023. Refer CTA angiogram of chest and CT chest 04/13/2023 TECHNIQUE: XR chest 2V. Frontal and lateral views of the chest.. FINDINGS: Lines/Tubes/Devices: EKG leads overlie the chest. No indwelling lines are seen. Heart/mediastinum: Heart size is stable, mildly enlarged. Mildly tortuous aorta. Mediastinum appears stable. Pulmonary vascularity: Not increased, Lungs/Pleura: Mild interstitial coarsening again noted, likely chronic changes. Similar appearance of curvilinear opacity over the right midlung zone likely platelike atelectasis. Minimal similar opacit y on the left. No definite new or worsening infiltrate, sizable effusion, or pneumothorax. Musculoskeletal: No acute osseous abnormality demonstrated in the limits of the exam. Other findings: None. IMPRESSION: Cardiomegaly. Mild platelike atelectasis bilaterally.
[2023-04-14 11:55] LABS: Glucose,Whole Blood 179 mg/dL (70-110)
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
[2023-04-14 16:33] LABS: Glucose,Whole Blood 194 mg/dL (70-110)
--- NOTE | 2023-04-14 19:22 | PN ---
PROGRESS NOTE SUBJECTIVE: Melissa Holt appears to be getting better from possible viral infection triggered asthma, COPD, interstitial lung disease. She became short of breath acutely over the past few days with pulse ox on room air 70%. She was admitted. She does not wear any oxygen at home currently. OBJECTIVE: VITAL SIGNS: Temperature 98.3, pulse 60s to 70s, blood pressure 125/60. She is 96% on 2 L. LUNGS: Fairly clear. Transmitted upper airway sounds. CARDIOVASCULAR: S1, S2. HEMATOLOGY: 2+ edema. NEUROLOGIC: Cranial nerves intact. ASSESSMENT: Nonlabored cough, some shortness of breath, but she appears to be improving since admission. Continue with current treatment. Labs are reviewed. CAT scans are reviewed. She has CTAs negative for PE due to elevated D-dimer. Continue on antibiotics. Wait for Pulmonary's recommendation, although she continues to be improving every day. Continue current treatments. Waiting for an echo. BNP is negative for CHF. Troponins are negative for heart attack. Continues to improve. PLAN: Continue current treatments. Wait for echo. Continue steroid updrafts. Possible cut down on antibiotics as she is getting better. She might have a viral infection or something. Negative procalcitonin, but she is improving clinically, so currently we will keep her on until lung doctor see her. Prognosis guarded. She is improving. Please see further orders. MMODL / IJN: [id number] /
--- NOTE | 2023-04-14 19:47 | CA ---
Transthoracic Echo Report Name: Melissa Holt Age: 87 Gender: F : 1935 Exam Date: 04/14/2023 10:35 Exam Location: [facility] Ht (in): 62 Wt (lb): 165 Ordering Physician: Blaise Mojica MD Attending/Referring Phys: [employer] Consultant Angélica Mann RDCS Procedure CPT: Indications: dyspnea Cardiac Hx: Technical Quality: Contrast 1: Definity Total Dose (mL): 2 Contrast 2: Total Dose (mL): MEASUREMENTS (Male / Female) Normal Values 2D ECHO LV Diastolic Diameter PLAX 3.3 cm 4.2 - 5.9 / 3.9 - 5.3 cm LV Systolic Diameter PLAX 2.8 cm IVS Diastolic Thickness 2.1 cm 0.6 - 1.0 / 0.6 - 0.9 cm LVPW Diastolic Thickness 1.1 cm 0.6 - 1.0 / 0.6 - 0.9 cm LV Relative Wall Thickness 1.0 LVOT Diameter 1.6 cm Aortic Root Diameter 3.5 cm LA Systolic Diameter LX 4.5 cm 3.0 - 4.0 / 2.7 - 3.8 cm DOPPLER AV Peak Velocity 124.1 cm/s AV Peak Gradient 6.2 mmHg AV Mean Velocity 77.0 cm/s AV Mean Gradient 2.6 mmHg AV Velocity Time Integral 32.7 cm LVOT Peak Velocity 92.2 cm/s LVOT Peak Gradient 3.4 mmHg LVOT Velocity Time Integral 24.8 cm LVOT Stroke Volume 49.5 cm??? LVOT Stroke Volume Index 28.1 ml/m??? LVOT Cardiac Index 1592.3 cm???/min???m??? AV Area Cont Eq vti 1.5 cm??? AV Area Cont Eq pk 1.5 cm??? MR Peak Velocity 433.3 cm/s MR Peak Gradient 75.1 mmHg Mitral E Point Velocity 88.3 cm/s Mitral A Point Velocity 122.7 cm/s Mitral E to A Ratio 0.7 MV Deceleration Time 309.2 ms TR Peak Velocity 242.3 cm/s TR Peak Gradient 23.5 mmHg PV Peak Velocity 76.5 cm/s PV Peak Gradient 2.3 mmHg FINDINGS Left Ventricle Severely increased septal wall thickness. Mildly increased posterior wall thickness. Left ventricular ejection fraction is estimated at 40-45%. Right Ventricle Unable to estimate the right ventricular systolic pressure. Right Atrium Right atrium not well visualized. Left Atrium Moderately increased left atrial diameter. Mitral Valve Nbgl-[id number] mitral regurgitation. Aortic Valve Aortic valve not well visualized. Tricuspid Valve Lcpw-qi-[id number] tricuspid regurgitation. Pulmonic Valve No pulmonic regurgitation. Pericardium No pericardial effusion. Aorta Normal size aortic root. CONCLUSIONS Previous echo recorded on 09/05/2017. Technically difficult study for interpretation Mildly impaired LV function with EF between 40-45% [id number] mitral regurgitation Previewed by: Dr. Brian Billy MD (Electronically Signed) Final Date: 14 April 2023 19:46
[2023-04-14 19:48] LABS: Glucose,Whole Blood 267 mg/dL (70-110)
[2023-04-15 05:26] LABS: Glucose,Whole Blood 200 mg/dL (70-110)
[2023-04-15 07:27] LABS: Basophils % (A) 0 %; Eosinophils % (A) 0 %; HCT 35.7 % (34.0-46.0); Lymphocytes # (A) 0.7 k/uL (1.0-4.8); Lymphocytes % (A) 6 %; MCH 32.7 pg (25.0-35.0); MCHC 33.5 g/dL (31.0-37.0); MCV 97.6 fL (80.0-100.0); Mean Platelet Volume 7.7; Monocytes # (A) 0.4 k/uL (0-1.0); Monocytes % (A) 3 %; Neutrophils # (A) 11.1 k/uL (1.3-7.7); Neutrophils % (A) 91 %; Platelet Count 257 k/uL (150-450); RBC 3.66 m/uL (3.80-5.40); RDW 14.4 % (11.5-15.5); WBC 12.3 k/uL (3.8-10.6)
[2023-04-15 07:40] LABS: ALT 16 U/L (4-34); AST 28 U/L (14-36); African American GFR (CKD) 83 (>60 ml/min/1.73 sqM); Albumin 3.7 g/dL (3.5-5.0); Alkaline Phosphatase 158 U/L (38-126); Anion Gap 3 mmol/L; Blood Urea Nitrogen 35 mg/dL (7-17); Calcium 9.7 mg/dL (8.4-10.2); Carbon Dioxide 24 mmol/L (22-30); Chloride 110 mmol/L (98-107); Glucose 175 mg/dL (74-99); Non-African American GFR(CKD) 72 (>60 ml/min/1.73 sqM); Potassium 4.7 mmol/L (3.5-5.1); Sodium 137 mmol/L (137-145); Total Bilirubin 0.5 mg/dL (0.2-1.3); Total Protein 5.9 g/dL (6.3-8.2)
[2023-04-15 11:24] LABS: Glucose,Whole Blood 264 mg/dL (70-110)
--- NOTE | 2023-04-15 15:25 | P.PN ---
Subjective Progress Note Date: 04/15/23 Principal diagnosis: Acute exacerbation of COPD 87-year-old female patient, presented to the hospital because of worsening shortness of breath. Breathing was progressively getting worse over the past and the patient was having increased cough congestion chest tightness and whe ezing. The patient has an albuterol nebulizer at home. She is a neck smoker. She has been told to have asthma. No clear history of COPD. She is utilizing her nebulizer treatments frequently and for that reason and along with worsening shortness of breath, she came into the hospital. Chest x-ray showed no acute abnormalities and there is some platelike atelectatic changes bilaterally. The patient was also given a CT angiogram in the emergency that showed no evidence of any pulmonary embolism. There was mild cardiomegaly and moderate degenerative changes of the spine and right shoulder intramuscular lipoma within the infraspinatus muscle. The white cell count is at 9.2 with a hemoglobin 12.7, D-dimer was 1.77 and the rest of the coagulation profile was within normal limits, electrolytes were normal, BUN was 22 with a creatinine of 0.8. Troponins are negative. proBNP level is 389. Procalcitonin level is at 0.06 and a viral panel that was obtained was negative. The patient was started on bronchodilators with DuoNeb updrafts and IV Solu-Medrol. Noted the patient also has history of myasthenia gravis. She has been maintained on pyridostigmine on outpatient basis 90 mg p.o. daily. No interval worsening in her motor function. No double vision. No dysphagia. Muscle forces needs to be checked. She is currently also on empiric antibiotic coverage with Zithromax. Feeling well. She is not an ex-smoker and she quit smoking back in the 90s. She is on 2 L of oxygen by nasal cannula. Patient was reevaluated today on 04/15/2023, patient is feeling better breathing a lot easier, she was seen by Dr. Álvarez yesterday with acute exacerbation of COPD. Patient is receiving bronchodilators, she is also on antibiotics,Procalcitonin level is 0.06. Chest x-ray showed no evidence of pneumonia. WBC count today is 12.3 hemoglobin is 12 basic metabolic profile is normal renal profile is normal, screening for influenza A influenza B RSV and COVID-19 are all negative. Objective - Vital Signs Vital signs: Vital Signs Temp 97.7 F 04/15/23 08:00 Pulse 78 04/15/23 15:09 Resp 18 04/15/23 08:00 BP 112/67 04/15/23 08:00 Pulse Ox 97 04/15/23 08:00 FiO2 50 04/12/23 21:11 Intake & Output 04/14/23 04/15/23 04/15/23 18:59 06:59 18:59 Intake Total 594 420 Balance 594 420 Intake: Oral 594 420 Other: Voiding Method Toilet Toilet Toilet Diaper # Voids 2 3 - Exam General: The patient is awake and alert, in no distress, and does not appear acutely ill. Skin: Skin is warm and dry and no rashes or lesions are noted. Eye: Pupils are equal, round and reactive to light, extra-ocular movements are intact; there is normal conjunctiva bilaterally. Ears, nose, mouth and throat: There are moist mucous membranes and no oral lesions. Neck: The neck is supple, there is no tenderness or JVD. Cardiovascular: There is a regular rate and rhythm. No murmur, rub or gallop is appreciated. Respiratory: Good breath sound bilaterally minimal wheezing on forced expiratory maneuver Gastrointestinal: Soft, non-distended, non-tender abdomen without masses or organomegaly noted. There is no rebound or guarding present. Bowel sounds are unremarkable. Back: There is no tenderness to palpation in the midline. There is no obvious deformity. Musculoskeletal: Normal ROM, no tenderness, There is no pedal edema. There is no calf tenderness or swelling. No cords were appreciated. Neurological: CN II-XII intact, Cranial nerves III through XII are intact. There are no obvious motor or sensory deficits. Coordination appears grossly intact. Speech is normal. Psychiatric: Cooperative, appropriate mood & affect, normal judgment. - Labs CBC & Chem 7: 04/15/23 06:50 04/15/23 06:50 Labs: Abnormal Lab Results - Last 24 Hours (Table) 04/14/23 04/14/23 04/15/23 Range/Units 16:31 19:47 05:25 WBC (3.8-10.6) k/uL RBC (3.80-5.40) m/uL Neutrophils # (1.3-7.7) k/uL Lymphocytes # (1.0-4.8) k/uL Chloride (98-107) mmol/L BUN (7-17) mg/dL Glucose (74-99) mg/dL POC Glucose (mg/dL) 194 H 267 H 200 H (70-110) mg/dL Alkaline Phosphatase (38-126) U/L Total Protein (6.3-8.2) g/dL 04/15/23 04/15/23 04/15/23 Range/Units 06:50 06:50 11:21 WBC 12.3 H (3.8-10.6) k/uL RBC 3.66 L (3.80-5.40) m/uL Neutrophils # 11.1 H (1.3-7.7) k/uL Lymphocytes # 0.7 L (1.0-4.8) k/uL Chloride 110 H (98-107) mmol/L BUN 35 H (7-17) mg/dL Glucose 175 H (74-99) mg/dL POC Glucose (mg/dL) 264 H (70-110) mg/dL Alkaline Phosphatase 158 H (38-126) U/L Total Protein 5.9 L (6.3-8.2) g/dL Assessment and Plan Assessment: Impression: Acute exacerbation of asthma/COPD Acute hypoxic respiratory failure, on 2 L nasal cannula secondary to above History of myasthenia gravis, stable remains on Mestinon. Benign essential hypertension Dyslipidemia Underlying coronary artery disease History of migraine cephalgia Recommendation: Continue present supportive care measures Continue updrafts Transition to oral steroids tomorrow Continue to titrate oxygen down and possibly discontinue in the next 24 hours Consider discharge planning in the next 24 hours. Will continue to follow Time with Patient: Less than 30
[2023-04-15 16:34] LABS: Glucose,Whole Blood 254 mg/dL (70-110)
[2023-04-15] MEDS: predniSONE 20 MG TAB PO SCH (16:35)
[2023-04-15 20:09] LABS: Glucose,Whole Blood 248 mg/dL (70-110)
--- NOTE | 2023-04-16 02:26 | PN ---
PROGRESS NOTE SUBJECTIVE: An 87-year-old white female for exacerbation of COPD, bronchodilators. Procalcitonin level 0.05 pneumonia. Hemoglobin is 12. She is negative for influenza: She has chronic nasty cough, which is new for her. Satting 95-97% on room air. OBJECTIVE: Temp 97.7, respiratory rate 18, pulse 77, cardiovascular S1, S2. Lungs scattered wheeze and rhonchi. Transition to oral steroids. Titrate oxygen. Discontinue possible discharge in the next 24 hours. Continues to improve COPD exacerbation, some viral syndrome, history of myasthenia gravis, hypertension, dyslipidemia, coronary artery disease, migraines, continue improvement. Prognosis guarded. MMODL / IJN: [id number] /
[2023-04-16 06:04] LABS: Glucose,Whole Blood 182 mg/dL (70-110)
[2023-04-16 09:48] VITALS: RESP 16
[2023-04-16] MEDS: FAMOTIDINE 20 MG TAB PO SCH (09:49)
[2023-04-16 11:34] VITALS: BP 153/70; TEMP 97.3
[2023-04-16 11:42] LABS: Glucose,Whole Blood 150 mg/dL (70-110)
[2023-04-16 13:52] VITALS: PULSE 54
--- NOTE | 2023-04-16 14:05 | P.PN ---
Subjective Progress Note Date: 04/16/23 Principal diagnosis: Acute exacerbation of COPD 87-year-old female patient, presented to the hospital because of worsening shortness of breath. Breathing was progressively getting worse over the past and the patient was having increased cough congestion chest tightness and whe ezing. The patient has an albuterol nebulizer at home. She is a neck smoker. She has been told to have asthma. No clear history of COPD. She is utilizing her nebulizer treatments frequently and for that reason and along with worsening shortness of breath, she came into the hospital. Chest x-ray showed no acute abnormalities and there is some platelike atelectatic changes bilaterally. The patient was also given a CT angiogram in the emergency that showed no evidence of any pulmonary embolism. There was mild cardiomegaly and moderate degenerative changes of the spine and right shoulder intramuscular lipoma within the infraspinatus muscle. The white cell count is at 9.2 with a hemoglobin 12.7, D-dimer was 1.77 and the rest of the coagulation profile was within normal limits, electrolytes were normal, BUN was 22 with a creatinine of 0.8. Troponins are negative. proBNP level is 389. Procalcitonin level is at 0.06 and a viral panel that was obtained was negative. The patient was started on bronchodilators with DuoNeb updrafts and IV Solu-Medrol. Noted the patient also has history of myasthenia gravis. She has been maintained on pyridostigmine on outpatient basis 90 mg p.o. daily. No interval worsening in her motor function. No double vision. No dysphagia. Muscle forces needs to be checked. She is currently also on empiric antibiotic coverage with Zithromax. Feeling well. She is not an ex-smoker and she quit smoking back in the 90s. She is on 2 L of oxygen by nasal cannula. Patient was reevaluated today on 04/15/2023, patient is feeling better breathing a lot easier, she was seen by Dr. Álvarez yesterday with acute exacerbation of COPD. Patient is receiving bronchodilators, she is also on antibiotics,Procalcitonin level is 0.06. Chest x-ray showed no evidence of pneumonia. WBC count today is 12.3 hemoglobin is 12 basic metabolic profile is normal renal profile is normal, screening for influenza A influenza B RSV and COVID-19 are all negative. Patient was reevaluated today on 04/16/2023, patient is feeling much better today, breathing a lot easier, hardly any pulmonary symptoms no cough no wheezing no shortness of breath, hence I will clear the patient to be discharged home today Objective - Vital Signs Vital signs: Vital Signs Temp 97.3 F L 04/16/23 08:55 Pulse 54 L 04/16/23 13:21 Resp 16 04/16/23 09:37 BP 153/70 04/16/23 08:55 Pulse Ox 91 L 04/16/23 11:24 FiO2 50 04/12/23 21:11 Intake & Output 04/15/23 04/16/23 04/16/23 18:59 06:59 18:59 Intake Total 637 217 236 Balance 637 217 236 Intake: Oral 637 217 236 Other: Voiding Method Toilet Toilet Toilet # Voids 1 - Exam General: Revealed 87-year-old female pleasant in no distress on 2 L nasal cannula, O2 saturation ranging between 91 up to 97% Skin: Skin is warm and dry and no rashes or lesions are noted. Eye: Pupils are equal, round and reactive to light, extra-ocular movements are intact; there is normal conjunctiva bilaterally. Ears, nose, mouth and throat: There are moist mucous membranes and no oral lesions. Neck: The neck is supple, there is no tenderness or JVD. Cardiovascular: There is a regular rate and rhythm. No murmur, rub or gallop is appreciated. Respiratory:. Throughout no crackles rhonchi or wheezes Gastrointestinal: Soft, non-distended, non-tender abdomen without masses or organomegaly noted. There is no rebound or guarding present. Bowel sounds are unremarkable. Back: There is no tenderness to palpation in the midline. There is no obvious deformity. Musculoskeletal: Normal ROM, no tenderness, There is no pedal edema. There is no calf tenderness or swelling. No cords were appreciated. Neurological: CN II-XII intact, Cranial nerves III through XII are intact. There are no obvious motor or sensory deficits. Coordination appears grossly intact. Speech is normal. Psychiatric: Cooperative, appropriate mood & affect, normal judgment. - Labs CBC & Chem 7: 04/15/23 06:50 04/15/23 06:50 Labs: Abnormal Lab Results - Last 24 Hours (Table) 04/15/23 04/15/2304/15/24 Range/Units 16:33 20:08 06:03 POC Glucose (mg/dL) 254 H 248 H 182 H (70-110) mg/dL 04/16/23 Range/Units 11:39 POC Glucose (mg/dL) 150 H (70-110) mg/dL Assessment and Plan Assessment: Impression: Acute exacerbation of asthma/COPD Acute hypoxic respiratory failure, on 2 L nasal cannula secondary to above History of myasthenia gravis, stable remains on Mestinon. Benign essential hypertension Dyslipidemia Underlying coronary artery disease History of migraine cephalgia Recommendation: Transition to oral meds, oral steroids, Continue updrafts Will clear the patient to be discharged home today Patient should be evaluated for possible home O2 Patient to follow-up on outpatient basis Time with Patient: Less than 30
--- NOTE | 2023-04-16 15:48 | P.DS ---
Providers Date of admission: 04/12/23 19:44 Expected date of discharge: 04/16/23 Attending physician: Blaise Mojica Consults: 04/13/23 12:42 Consult Physician Routine Consulting Provider: Arlene Álvarez Consult Reason/Comments: hypoxia Do you want consulting provider notified?: Yes Primary care physician: Blaise Forrestermenaz [facility] Course: Hospital course: I am rounding for Dr. Blaise Mojica. April 16, 2023: Sitting up in a chair. Breathing much better. Patient will be sent home on 2 L of oxygen. This has been arranged. Eating well. Patient to follow-up with Dr. Álvarez. Discussed with the patient. Patient has updrafts at home. Steroid taper. Eating well. Discussion and discharge planning more than 35 minutes On examination: VITAL SIGNS: [97.3, 52, 18, 153 x 70, 97% on 2 L] GENERAL APPEARANCE: BMI 30.2, sitting up in chair awake comfortable HEENT: Normal external appearance of nose and ear. Oral cavity normal EYES: Pupils equal. Conjunctiva normal. NECK: JVD not raised. Mass not palpable. RESPIRATORY: Respiratory effort normal. Lungs fair air entry CARDIOVASCULAR: First and second sounds normal. No edema. ABDOMEN: Soft. Liver and spleen not palpable. No tenderness. No mass palpable. PSYCHIATRY: Alert and oriented x3. Mood and affect normal. INVESTIGATIONS, reviewed in the clinical context: April 14: White count 12.3 hemoglobin 12 potassium 4.7 creatinine 0.76 Chest CTA: DJD spine. No PE. 2D echocardiogram: EF 40 to 45%. Mild to moderate MR. Mild to moderate TR. Assessment plan: -Acute COPD/asthma exacerbation, in previous smoker -Acute hypoxic respiratory failure secondary to asthma/COPD exacerbation -Chronic myasthenia gravis -Essential hypertension -Hyperlipidemia -Coronary artery disease -Chronic congestive heart failure from systolic dysfunction EF 40 to 45% from ischemic heart disease Disposition: Home Patient Condition at Discharge: Stable Plan - Discharge Summary Discharge Rx Participant: Yes New Discharge Prescriptions: New predniSONE 10 mg PO DAILY #30 tab Ipratropium-Albuterol Nebulize [Duoneb 0.5 mg-3 mg/3 ml Soln] 3 ml INHALATION TID #90 each Continue Spironolactone [Aldactone] 25 mg PO DAILY Cetirizine HCl [Zyrtec] 10 mg PO DAILY Atorvastatin [Lipitor] 20 mg PO HS Pyridostigmine [place] [Mestinon] 90 mg PO DAILY Metoprolol Tartrate [Lopressor] 100 mg PO BID Omeprazole 40 mg PO DAILY Famotidine [Pepcid] 20 mg PO BID Ipratropium/Albuter 20-100Mcg [Combivent Respimat 20-100Mcg Inhaler] 1 puff INHALATION RT-BID Discharge Medication List Cetirizine HCl [Zyrtec] 10 mg PO DAILY 11/09/16 [History] Spironolactone [Aldactone] 25 mg PO DAILY 11/09/16 [History] Atorvastatin [Lipitor] 20 mg PO HS 09/04/17 [History] Famotidine [Pepcid] 20 mg PO BID 04/12/23 [History] Ipratropium/Albuter 20-100Mcg [Combivent Respimat 20-100Mcg Inhaler] 1 puff INHALATION RT-BID 04/12/23 [History] Metoprolol Tartrate [Lopressor] 100 mg PO BID 04/12/23 [History] Omeprazole 40 mg PO DAILY 04/12/23 [History] Pyridostigmine [place] [Mestinon] 90 mg PO DAILY 04/12/23 [History] Ipratropium-Albuterol Nebulize [Duoneb 0.5 mg-3 mg/3 ml Soln] 3 ml INHALATION TID #90 each 04/16/23 [Rx] predniSONE 10 mg PO DAILY #30 tab 04/16/23 [Rx] Follow up Appointment(s)/Referral(s): [facility] [NON-STAFF] - Blaise Mojica MD [Primary Care Provider] - 04/24/23 10:45 am Arlene Álvarez MD [STAFF PHYSICIAN] - 04/23/23 8:30 am Patient Instructions/Handouts: COPD (Chronic Obstructive Pulmonary Disease) (DC) Discharge Disposition: HOME SELF-CARE
== END 2023-04-16 14:14 | disposition home or self-care (01) | DRG 189 ==
LOC: EC 18:17 → 3SCARD 19:44
PROVIDERS: ADMIT Family Medicine; ATTEND Family Medicine
PROC: 5A09357 Assistance with Respiratory Ventilation, Less than 24 Consecutive Hours, Continuous Positive Airway Pressure (ICD-10-PCS; principal; 2023-04-12)
DX: J96.01 Acute respiratory failure with hypoxia (principal); J44.1 Chronic obstructive pulmonary disease with (acute) exacerbation; J45.41 Moderate persistent asthma with (acute) exacerbation; J44.0 Chronic obstructive pulmonary disease with (acute) lower respiratory infection; I50.22 Chronic systolic (congestive) heart failure; I11.0 Hypertensive heart disease with heart failure; G70.00 Myasthenia gravis without (acute) exacerbation; K21.9 Gastro-esophageal reflux disease without esophagitis; I44.7 Left bundle-branch block, unspecified; I25.10 Atherosclerotic heart disease of native coronary artery without angina pectoris; D17.9 Benign lipomatous neoplasm, unspecified; E78.5 Hyperlipidemia, unspecified; I25.2 Old myocardial infarction; Z79.899 Other long term (current) drug therapy; Z87.891 Personal history of nicotine dependence; Z86.73 Personal history of transient ischemic attack (TIA), and cerebral infarction without residual deficits; Z96.60 Presence of unspecified orthopedic joint implant; Z88.1 Allergy status to other antibiotic agents
CPT/HCPCS: 36415; 71045; 71046; 71250; 71275; 80053; 83735; 83880; 84145; 84484; 85025; 85379; 85610; 85730; 87636; 93005; 93306; 94640; 94660; 94760; 96374; 96376; 99291

== ENCOUNTER 2024-03-12 15:17 | Inpatient (IN) | payer MEDICARE ==
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
--- NOTE | 2024-03-12 18:59 | XR ---
EXAMINATION TYPE: XR KUB DATE OF EXAM: 03/12/2024 6:23 PM COMPARISON: None. CLINICAL INDICATION: Female, 88 years old with history of constipation, TECHNIQUE: XR KUB view(s) obtained. FINDINGS: There is a normal bowel gas pattern. Psoas margins are not well visualized. No organomegaly is present. IMPRESSION: 1. Nonspecific abdomen [facility], Workstation: [facility], 03/12/2024 6:57 PM
[2024-03-12] MEDS: DICYCLOMINE 10 MG CAP PO STA (19:36)
[2024-03-12] MEDS: SODIUM CHLORIDE 0.9% 500 ML 500 ML IV STA (19:44)
[2024-03-12 19:58] LABS: Basophils # (A) 0.1 k/uL (0-0.2); Basophils % (A) 0 %; Eosinophils # (A) 0.1 k/uL (0-0.7); Eosinophils % (A) 0 %; HCT 36.6 % (34.0-46.0); HGB 12.5 gm/dL (11.4-16.0); Lymphocytes # (A) 3.3 k/uL (1.0-4.8); Lymphocytes % (A) 17 %; MCH 31.3 pg (25.0-35.0); MCHC 34.2 g/dL (31.0-37.0); MCV 91.5 fL (80.0-100.0); Mean Platelet Volume 6.8; Monocytes # (A) 1.7 k/uL (0-1.0); Monocytes % (A) 8 %; Neutrophils # (A) 14.1 k/uL (1.3-7.7); Neutrophils % (A) 72 %; Platelet Count 290 k/uL (150-450); Poikilocytosis Slight; RDW 15.4 % (11.5-15.5); WBC 19.7 k/uL (3.8-10.6)
[2024-03-12 20:09] LABS: ALT 17 U/L (4-34); AST 25 U/L (14-36); African American GFR (CKD) 69 (>60 ml/min/1.73 sqM); Albumin 4.3 g/dL (3.5-5.0); Alkaline Phosphatase 177 U/L (38-126); Anion Gap 7 mmol/L; Blood Urea Nitrogen 36 mg/dL (7-17); Calcium 10.2 mg/dL (8.4-10.2); Carbon Dioxide 24 mmol/L (22-30); Chloride 106 mmol/L (98-107); Glucose 119 mg/dL (74-99); Non-African American GFR(CKD) 60 (>60 ml/min/1.73 sqM); Potassium 4.7 mmol/L (3.5-5.1); Sodium 137 mmol/L (137-145); Total Bilirubin 0.6 mg/dL (0.2-1.3); Total Protein 6.6 g/dL (6.3-8.2)
--- NOTE | 2024-03-12 21:05 | CT ---
EXAMINATION TYPE: CT abdomen pelvis w con DATE OF EXAM: 03/12/2024 8:37 PM COMPARISON: None. CLINICAL INDICATION: Female, 88 years old with history of abd pain, acute, pt arrives with c/o diarrh ea, pt state that she was constipated for a day TECHNIQUE: Axial images were obtained from above the diaphragm to the pubic rami in the axial plane a t 5 mm thick sections. Reconstructed images are reviewed on the computer in the coronal plane. CONTRAST: 100ml mL of Isovue 300. Study performed without Oral Contrast DLP: 1258.4 mGycm, Automated exposure control for dose reduction was used. FINDINGS: Limited CT sections are obtained the lung bases. The lung bases are clear. CT ABDOMEN: Liver: Hepatic cyst is at the right tip of the liver measuring 2.5 cm. Spleen: Normal Pancreas: Somewhat atrophic Adrenal glands: The adrenal glands are normal. Gallbladder: There may be some sludge or gravel at the fundus. Gallbladder is otherwise unremarkable. Kidneys: No masses are evident. No hydronephrosis is present. No cysts are present. Delayed images were obtained through the kidneys, which remain unremarkable. Aorta: Vascular calcification is within the aorta. Inferior vena cava: Normal. CT PELVIS: There are some small bowel loops with fluid. Distal small bowel loops are decompressed. Fecal debris in the ascending colon and rectum. There is a large air-filled sigmoid colon which narrows at the distal sigmoid colon, example image se sejal 201 image 47. Series 201 image 55. Series 303 image 69. Transverse dimension is 6.4 cm. Consider sigmoid volvulus. A focal etiology for narrowing is not otherwise apparent. Appendix: Not identified. No dilated tubular structure or inflammatory changes evident. Urinary bladder: Normal. Genitourinary structures: Uterus and ovaries are not identified. Osseous structures: No suspicious lytic or sclerotic lesions. Degenerative disc changes are within alvarez mbar spine. IMPRESSION: 1. Air-filled sigmoid colon with a focal narrowing. Correlate for sigmoid volvulus. Report was brenner d and case discussed with emergency room PA by Dr. Deras by telephone at the time of interpretation . 2. Small amount of sludge or gravel may be within the fundus of the gallbladder. Gallbladder is other solomon unremarkable. [facility], Workstation: [facility], 03/12/2024 9:03 PM
[2024-03-12] MEDS ORDERED: HYDROmorphone 0.5 MG/0.5 ML SYRINGE IVP PRN (21:59)
[2024-03-12] MEDS ORDERED: NALOXONE 0.4 MG/ML 1 ML VIAL IV PRN (21:59)
[2024-03-12] MEDS: MORPHINE SULFATE 4 MG/ML SYRINGE IV PRN (22:52)
[2024-03-12] MEDS: metroNIDAZOLE-NS PMX 500 MG in SALINE 1 100ML.BAG IVPB STA (22:53)
[2024-03-13] MEDS: LEVOFLOXACIN 750MG-D5W PMX 750 MG in DEXTROSE/WATER 1 150ML.BAG IVPB STA (00:38)
[2024-03-13] MEDS ORDERED: PROPOFOL 10 MG/ML 20 ML VIAL IV ONE (07:35)
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
[2024-03-13] MEDS: LACTATED RINGERS 1,000 ML IV ONE (08:02)
--- NOTE | 2024-03-13 08:25 | P.PCN ---
Date of Procedure: 03/13/24 Procedure(s) Performed: PREOPERATIVE DIAGNOSIS: Sigmoid volvulus POSTOPERATIVE DIAGNOSIS: Fecal impaction without evidence currently of sigmoid volvulus PROCEDURE: Flexible sigmoidoscopy with disimpaction ANESTHESIA: MAC SURGEON: Chaparro Maya M.D. SPECIMENS: None ENDOSCOPIC PROCEDURE: The patient was placed on the endoscopy table in the left decubitus position. The Olympus colonoscope was inserted into the anus and passed under direct visualization to the proximal sigmoid colon. There was no suggestion of twisting of the colon during our advancement of the scope. There was a large fecal bolus and scattered solid stool throughout the proximal rectum and sigmoid colon. The mucosa appeared viable. Mild diverticulosis was seen. The scope was withdrawn. Manual disimpaction of the fecal bolus took place. I would estimate 6 to 8 ounces of solid stool was removed. It was firm but not hard. The patient had small hemorrhoids as well. No mucosal abnormalities to suggest ischemic changes of the rectum from the fecal impaction. Etiology for the patient's complaints of bleeding unclear currently but may have been hemorrhoidal. The patient was taken to the recovery room in stable condition per anesthesia guidelines. RECOMMENDATIONS: Begin soapsuds enemas this morning. Add lactulose. Begin clear liquid diet. Continue antibiotics empirically. Case discussed with the patient's son who is a retired glass wool blanket machine feeder. No plans for interval sigmoid colectomy at this time.
[2024-03-13] MEDS: LACTULOSE 20 GM/30 ML CUP PO SCH (09:03)
[2024-03-13] MEDS: D5-0.45% NACL WITH KCL 20MEQ/L 1,000 ML IV SCH (12:08)
[2024-03-13] MEDS: GABAPENTIN 100 MG CAP PO SCH (15:47)
[2024-03-13] MEDS: valACYclovir HCL 1,000 MG TABLET PO SCH (15:47)
[2024-03-13] MEDS: methylPREDNISolone SOD SUCCI 40 MG/ML 1 ML VIAL IV SCH (15:52)
[2024-03-13] MEDS: IPRATROPIUM-ALBUTEROL 3 ML NEB INHALATION SCH (16:31)
[2024-03-13] MEDS: METOPROLOL TARTRATE 50 MG TAB PO SCH (21:17)
[2024-03-13] MEDS: LEVOFLOXACIN 500MG-D5W PMX 500 MG in DEXTROSE/WATER 1 100ML.BAG IVPB SCH (21:17)
[2024-03-13] MEDS: ATORVASTATIN 20 MG TAB PO SCH (21:17)
[2024-03-13] MEDS: FAMOTIDINE 20 MG TAB PO SCH (21:17)
--- NOTE | 2024-03-14 00:55 | CONS ---
CONSULTATION HISTORY OF PRESENT ILLNESS: An 88-year-old white female, came in with abdominal pain, found to have a volvulus in the abdomen, for which Surgery took her to some kind of barium enema for a sigmoid volvulus fecal impaction without evidence currently of disimpaction from the sigmoid volvulus, possibly had about 6 to 8 ounces of salt solution removed by sigmoidoscopy, possibly hemorrhoidal. She had soapsuds enema this morning, had lactulose. Clear liquid diet. Home medications were reordered. REVIEW OF SYSTEMS: A 14-point review of systems otherwise negative. PHYSICAL EXAMINATION: VITAL SIGNS: Temperature 98, pulse 87, blood pressure 136/77, O2 of 95% on room air. CARDIOVASCULAR: S1, S2. LUNGS: Transmitted upper sounds. GI: Soft. She is sitting up in a chair, having a bowel movement. Increased bowel sounds. CARDIOVASCULAR: S1, S2. HEMATOLOGY: Negative Homans. LABORATORY DATA: White count is 19.7, hemoglobin is 12.5, sodium 137, potassium 4.7, BUN is 36, creatinine 0.88, glucose 119. ASSESSMENT: Fecal impaction versus volvulus, history of chronic obstructive pulmonary disease, pulmonary hypertension. Continue current treatment. Follow up in the next 24 to 48 hours. Fix surgical treatment of the volvulus disimpaction. Continue current home medications. MMODL / IJN: [id number] /
[2024-03-14] MEDS: PANTOPRAZOLE 40 MG TABLET PO SCH (09:02)
[2024-03-14] MEDS: LOSARTAN 50 MG TAB PO SCH (09:02)
[2024-03-14] MEDS: MONTELUKAST 10 MG TAB PO SCH (09:02)
[2024-03-14] MEDS: PYRIDOSTIGMINE BROMIDE 180 MG PO SCH (09:12)
--- NOTE | 2024-03-14 10:00 | PN ---
PROGRESS NOTE SUBJECTIVE: An 88-year-old white female, Dr. Maya did a procedure for fecal impaction versus volvulus. Her abdominal pain has gone today. She is having bowel movements. Sitting up in bed. Breathing normal. OBJECTIVE: VITAL SIGNS: Blood pressure is 165/78, temp 98.1, pulse 78, respiratory rate 17, O2 of 96% on room air. CARDIOVASCULAR: S1, S2. LUNGS: Clear. GI: Soft. HEMATOLOGY: Negative Homans. Status post fecal decompression versus volvulus, hypertension acceleration, chronic obstructive pulmonary disease. Monitor blood pressure. If it continues to stay high, we will increase her blood pressure medication, may be IV hep jovita. She is tolerating clear liquids. Wait for surgical recommendations. Continue home medicines. MMODL / IJN: [id number] /
[2024-03-14 12:33] LABS: ALT 14 U/L (8-44); AST 19 U/L (13-35); Albumin 3.6 g/dL (3.8-4.9); Albumin/Globulin Ratio 2.12 Ratio (1.60-3.17); Alkaline Phosphatase 156 U/L (41-126); BUN/Creat Ratio 18.75 Ratio (12.00-20.00); Carbon Dioxide 21.7 mmol/L (21.6-31.8); Chloride 107 mmol/L (96-109); Globulin 1.7 g/dL (1.6-3.3); Glucose 145 mg/dL (70-110); Potassium 4.8 mmol/L (3.5-5.5); Sodium 139 mmol/L (135-145); Total Bilirubin 0.3 mg/dL (0.3-1.2); Total Protein 5.3 g/dL (6.2-8.2)
[2024-03-14 12:56] LABS: Basophils # (A) 0.07 X 10*3/uL (0.00-0.10); Basophils % (A) 0.7 %; Eosinophils # (A) 0.24 X 10*3/uL (0.04-0.35); Eosinophils % (A) 2.4 %; HCT 36.2 % (37.2-46.3); HGB 11.1 g/dL (12.0-15.0); Lymphocytes # (A) 2.59 X 10*3/uL (0.90-5.00); Lymphocytes % (A) 26.1 %; MCH 30.7 pg (27.0-32.0); MCHC 30.7 g/dL (32.0-37.0); Mean Platelet Volume 9.1 FL (9.5-12.2); Monocytes # (A) 1.19 X 10*3/uL (0.20-1.00); NRBC Per 100 WBC 0 X 10*3/uL (0.00-0.01); Neutrophils # (A) 5.63 X 10*3/uL (1.80-7.70); Neutrophils % (A) 56.9 %; Platelet Count 228 X 10*3/uL (140-440); RBC 3.62 X 10*6/uL (4.10-5.20); RDW 16.2 % (11.5-14.5); WBC 9.91 X 10*3/uL (4.50-10.00)
--- NOTE | 2024-03-14 14:57 | P.PN ---
Subjective Progress Note Date: 03/14/24 CHIEF COMPLAINT: Fecal impaction HISTORY OF PRESENT ILLNESS: The patient is a 88-year-old female admitted for constipation and abnormal CT scan for sigmoid volvulus. Flex sigmoidoscopy demonstrated only fecal impaction without evidence of sigmoid volvulus. Patient having multiple bowel movements. She is resting comfortably. ROS: No reports of nausea and vomiting. No fevers or chills. No new chest pain. No productive sputum PHYSICAL EXAM: VITAL SIGNS: Reviewed CONSTITUTIONAL: Well developed and in no acute distress. EYES: Conjuctivae without sclera icterus. Extraocular movements grossly intact. HEAD, EARS, NOSE, THROAT: Moist buccal mucosa. Head is atraumatic, normocephali RESPIRATORY: Non-labored respirations and equal bilateral excursions. CARDIOVASCULAR: Regular rate rhythm ABDOMEN: No peritonitis. MUSCULOSKELETAL: No gross deformity of the lower extremities noted. No clu bbing. No cyanosis. SKIN: Good skin turgor. Well perfused. NEUROLOGIC: Cranial nerves II through XII grossly intact. No focal or lateralizing signs. CLINICAL LABS: Reviewed. WBC elevated on admission 14,000 down to normal STUDIES: CT of the abdomen pelvis is on admission independent reviewed demonstrates diffuse gaseous distention involving the cecum and ascending colon however I do not see any evidence of sigmoid volvulus. Moderate stool burden within the rectum consistent with fecal impaction. This is my independent interpretation. ASSESSMENT: 1. Abnormal CT scan for sigmoid volvulus disconcordant with physical exam 2. Fecal impaction PLAN: 1. Continue bowel regimen. 2. Diet as tolerated. Objective - Vital Signs Vital signs: Vital Signs Temp 98.1 F 03/14/24 07:20 Pulse 78 03/14/24 07:20 Resp 17 03/14/24 07:20 BP 165/78 03/14/24 07:20 Pulse Ox 96 03/14/24 07:20 FiO2 Intake & Output 03/13/24 03/14/24 03/14/24 18:59 06:59 18:59 Intake Total 200 120 Output Total 1 Balance 200 -1 120 Intake: IV 200 Oral 120 Output: Urine/Stool Mix 1 Other: Voiding Method Bedside Commode Bedside Commode # Voids 9 3 1 # Bowel Movements 1 1 - Labs CBC & Chem 7: 03/14/24 03:26 03/14/24 03:26 Labs: Abnormal Lab Results - Last 24 Hours (Table) 03/14/24 03/14/24 Range/Units 03:26 03:26 RBC 3.62 L (4.10-5.20) X 10*6/uL Hgb 11.1 L (12.0-15.0) g/dL Hct 36.2 L (37.2-46.3) % MCV 100.0 H (80.0-97.0) FL MCHC 30.7 L (32.0-37.0) g/dL RDW 16.2 H (11.5-14.5) % MPV 9.1 L (9.5-12.2) FL Immature Gran # 0.19 H (0.00-0.04) X 10*3/uL Monocytes # 1.19 H (0.20-1.00) X 10*3/uL Glucose 145 H (70-110) mg/dL Alkaline Phosphatase 156 H (41-126) U/L Total Protein 5.3 L (6.2-8.2) g/dL Albumin 3.6 L (3.8-4.9) g/dL Microbiology - Last 24 Hours (Table) 03/12/24 22:51 Blood Culture - Preliminary Blood
[2024-03-14] MEDS ORDERED: ZINC OXIDE PASTE (Z-GUARD) 1 APPLIC TOPICAL PRN (18:47)
[2024-03-15] MEDS: valACYclovir HCL 1,000 MG TABLET PO SCH (10:00)
--- NOTE | 2024-03-15 16:34 | P.PN ---
Subjective Progress Note Date: 03/15/24 CHIEF COMPLAINT: Fecal impaction HISTORY OF PRESENT ILLNESS: The patient is a 88-year-old female admitted for sigmoid volvulus which was corrected as severe constipation. Patient having multiple bowel movements. "I want to eat normal food." She is tolerating liquids. ROS: No reports of nausea and vomiting. No fevers or chills. No new chest pain. No productive sputum PHYSICAL EXAM: VITAL SIGNS: Reviewed CONSTITUTIONAL: Well developed and in no acute distress. EYES: Conjuctivae without sclera icterus. Extraocular movements grossly intact. HEAD, EARS, NOSE, THROAT: Moist buccal mucosa. Head is atraumatic, normocephali RESPIRATORY: Non-labored respirations and equal bilateral excursions. CARDIOVASCULAR: Regular rate rhythm ABDOMEN: No peritonitis. MUSCULOSKELETAL: No gross deformity of the lower extremities noted. No clubbing. No cyanosis. SKIN: Good skin turgor. Well perfused. NEUROLOGIC: Cranial nerves II through XII grossly intact. No focal or lateralizing signs. CLINICAL LABS: Reviewed. No new labs. WBC was normal. ASSESSMENT: 1. Abnormal CT scan for sigmoid volvulus disconcordant with physical exam 2. Fecal impaction 3. Obesity to excess calories, BMI 31.1 PLAN: 1. Will advance diet to low fiber diet. 2. Potential discharge when medically stable. Objective - Vital Signs Vital signs: Vital Signs Temp 98.1 F 03/15/24 14:00 Pulse 80 03/15/24 14:00 Resp 17 03/15/24 14:00 BP 144/73 03/15/24 14:00 Pulse Ox 96 03/15/24 14:00 FiO2 Intake & Output 03/14/24 03/15/24 03/15/24 18:59 06:59 18:59 Intake Total 720 1620 600 Balance 720 1620 600 Intake: Oral 720 1620 600 Other: Voiding Method Bedside Commode Bedside Commode # Voids 2 5 1 # Bowel Movements 2 5 1 - Labs CBC & Chem 7: 03/14/24 03:26 03/14/24 03:26 Labs: Microbiology - Last 24 Hours (Table) 03/12/24 22:51 Blood Culture - Preliminary Blood
[2024-03-15] MEDS: IPRATROPIUM-ALBUTEROL 3 ML NEB INHALATION SCH (16:54)
[2024-03-15] MEDS: LEVOFLOXACIN 750MG-D5W PMX 750 MG in DEXTROSE/WATER 1 150ML.BAG IVPB SCH (21:02)
[2024-03-16 09:21] VITALS: BP 127/78; PULSE 91; RESP 17; TEMP 98.6
--- NOTE | 2024-03-16 12:57 | XR ---
EXAMINATION TYPE: XR abdomen 2V DATE OF EXAM: 03/16/2024 12:34 PM COMPARISON: 03/12/2024 CLINICAL INDICATION: Female, 88 years old with history of abdominal distention, constipation; PH[facility] TECHNIQUE: Two views of the abdomen were obtained. FINDINGS: Gaseous distention of the bowel and stomach. Moderate amount stool throughout the colon. Th e bowel gas pattern is nonspecific without dilated loops of small or large bowel. There is no evidenc e for organomegaly or pneumoperitoneum. The osseous structures are intact. No abnormal calcificatio ns are present. Fecal material and gas are demonstrated throughout the colon and rectum. IMPRESSION: Gaseous dilation of the stomach and bowel. Nonspecific bowel gas pattern without radiographic evidenc e for acute process. [facility], , 03/16/2024 12:54 PM
--- NOTE | 2024-03-16 13:42 | P.DS ---
Providers Date of admission: 03/13/24 09:25 Expected date of discharge: 03/16/24 Attending physician: Chaparro Maya Consults: 03/13/24 08:14 Consult Physician Routine Consulting Provider: Blaise Mojica Consult Reason/Comments: med mgmt Do you want consulting provider notified?: Yes Primary care physician: Blaise Mojica Hospital Course: Discharge diagnosis 1. Fecal impaction Hospital course This is a 88-year-old female who presented with acute onset of lower abdominal pain. She was having bloody diarrhea. She had a CT scan abdomen pelvis performed showing distended sigmoid colon and narrowing in the rectosigmoid junction worsening of a sigmoid volvulus. Patient is status post flexible sigmoidoscopy with disimpaction. Patient was found to have fecal impaction wit hout evidence currently of a sigmoid volvulus. Patient is having bowel movements. She has tolerated advancement of diet. She reports improvement in her abdominal pain. She has been up and ambulating. She is afebrile. She is stable for discharge. Recommend that she continues a bowel regimen at home. Please refer to chart for any further details. Physician Terrazzo Worker note has been reviewed by physician. Signing provider agrees with the documented findings, assessment, and plan of care. Patient Condition at Discharge: Stable Plan - Discharge Summary Discharge Rx Participant: No New Discharge Prescriptions: New Lactulose [Cephulac] 30 gm PO BID 30 Days #60 ml Ipratropium-Albuterol Nebulize [Duoneb 0.5 mg-3 mg/3 ml Soln] 3 ml INHALATION RT-TID 30 Days #120 each Levofloxacin 750Mg-D5w Pmx [Levaquin 750Mg-D5w Pmx] 750 mg IVPB Q48H 5 Days #5 each Continue Atorvastatin [Lipitor] 20 mg PO HS Pyridostigmine [place] [Mestinon] 90 mg PO DAILY Metoprolol Tartrate [Lopressor] 100 mg PO BID valACYclovir HCL [Valtrex] 1,000 mg PO TID Montelukast [Singulair] 10 mg PO DAILY Losartan [Cozaar] 50 mg PO DAILY Gabapentin [Neurontin] 100 mg PO TID Omeprazole 40 mg PO DAILY Famotidine [Pepcid] 20 mg PO BID predniSONE [Deltasone] See Taper PO DIRECTED Discharge Medication List Atorvastatin [Lipitor] 20 mg PO HS 09/04/17 [History] Famotidine [Pepcid] 20 mg PO BID 04/12/23 [History] Metoprolol Tartrate [Lopressor] 100 mg PO BID 04/12/23 [History] Omeprazole 40 mg PO DAILY 04/12/23 [History] Pyridostigmine [place] [Mestinon] 90 mg PO DAILY 04/12/23 [History] Gabapentin [Neurontin] 100 mg PO TID 03/13/24 [History] Losartan [Cozaar] 50 mg PO DAILY 03/13/24 [History] Montelukast [Singulair] 10 mg PO DAILY 03/13/24 [History] predniSONE [Deltasone] See Taper PO DIRECTED 03/13/24 [History] valACYclovir HCL [Valtrex] 1,000 mg PO TID 03/13/24 [History] Ipratropium-Albuterol Nebulize [Duoneb 0.5 mg-3 mg/3 ml Soln] 3 ml INHALATION RT-TID 30 Days #120 each 03/15/24 [Rx] Lactulose [Cephulac] 30 gm PO BID 30 Days #60 ml 03/15/24 [Rx] Levofloxacin 750Mg-D5w Pmx [Levaquin 750Mg-D5w Pmx] 750 mg IVPB Q48H 5 Days #5 each 03/15/24 [Rx] Follow up Appointment(s)/Referral(s): Blaise Mojica MD [Primary Care Provider] - 1-2 days Discharge Disposition: HOME SELF-CARE
--- NOTE | 2024-03-16 21:29 | PN ---
PROGRESS NOTE SUBJECTIVE: An 88-year-old white female, wants to eat food and go home. OBJECTIVE: CARDIOVASCULAR: S1, S2. LUNGS: Clear. GI: Soft. HEMATOLOGY: Negative Homans. PSYCH: Fair mood and affect. ASSESSMENT: Fecal impaction, rule out intussusception or volvulus, which appears to be not clinically significant. She is having multiple bowel movements, so she will advance her diet and then go home in the morning if she is still in no pain. MMODL / IJN: [id number] /
== END 2024-03-16 16:37 | disposition home or self-care (01) | DRG 390 ==
LOC: EC 15:17 → 4SSUR 03-13 01:33 → OBSVTOIN 03-13 09:25
PROVIDERS: ADMIT Surgery; ATTEND Surgery
PROC: 0DCP8ZZ Extirpation of Matter from Rectum, Via Natural or Artificial Opening Endoscopic (ICD-10-PCS; principal; 2024-03-13 07:30)
DX: K56.41 Fecal impaction (principal); I27.20 Pulmonary hypertension, unspecified; J44.9 Chronic obstructive pulmonary disease, unspecified; Z68.31 Body mass index [BMI] 31.0-31.9, adult; I10 Essential (primary) hypertension; K57.30 Diverticulosis of large intestine without perforation or abscess without bleeding; J45.40 Moderate persistent asthma, uncomplicated; E66.9 Obesity, unspecified; E78.5 Hyperlipidemia, unspecified; G70.00 Myasthenia gravis without (acute) exacerbation; I44.7 Left bundle-branch block, unspecified; K64.9 Unspecified hemorrhoids; I25.2 Old myocardial infarction; Z98.42 Cataract extraction status, left eye; Z98.41 Cataract extraction status, right eye; Z79.899 Other long term (current) drug therapy; Z81.8 Family history of other mental and behavioral disorders; Z87.891 Personal history of nicotine dependence; Z90.710 Acquired absence of both cervix and uterus; Z96.1 Presence of intraocular lens
CPT/HCPCS: 36415; 45330; 74018; 74019; 74177; 80053; 83605; 85025; 87040; 94640; 96361; 96365; 96367; 96375; 99285

== ENCOUNTER → 2024-04-27 | Outpatient (CLI) | payer MEDICARE ==
[2024-04-27 14:46] LABS: Influenza A Not Detected (Not Detectd); Influenza B Not Detected (Not Detectd); RSV Not Detected (Not Detectd)
== END | disposition home or self-care (01) ==
LOC: LABWHC1 13:47
PROVIDERS: ATTEND Family Medicine
DX: U07.1 COVID-19 (principal); B89 Unspecified parasitic disease
CPT/HCPCS: 87636

== ENCOUNTER 2024-07-21 22:25 | Observation (INO) | payer MEDICARE ==
[2024-07-21] MEDS ORDERED: VANCOMYCIN IV PER PHARMACY 1 EACH MISC MISCELLANE PRN (22:58)
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
[2024-07-21] MEDS: ACETAMINOPHEN TAB 325 MG TAB PO STA (23:40)
[2024-07-21] MEDS: DIPH,PERTUS(ACELL)TETVAC-LF 0.5 ML VIAL IM ONE (23:42)
[2024-07-21] MEDS: LIDOCAINE 1% INJ 10MG/ML (20 ML MDV) SQ ONE (23:43)
[2024-07-21] MEDS: HYDROmorphone 0.5 MG/0.5 ML SYRINGE IVP STA (23:43)
[2024-07-21] MEDS: VANCOMYCIN 1,250 MG in SODIUM CHLORIDE 0.9% 250 ML IVPB ONE (23:47)
[2024-07-22 00:09] LABS: Basophils # (A) 0.05 10*3/uL (0.00-0.10); Basophils % (A) 0.4 %; Eosinophils # (A) 0.33 10*3/uL (0.04-0.35); Eosinophils % (A) 2.9 %; HCT 31.9 % (37.2-46.3); Lymphocytes # (A) 1.82 10*3/uL (0.90-5.00); Lymphocytes % (A) 16.1 %; MCH 32.5 pg (27.0-32.0); MCHC 34.5 g/dL (32.0-37.0); MCV 94.4 fL (80.0-97.0); Mean Platelet Volume 9.1 fL (9.5-12.2); Monocytes # (A) 0.91 10*3/uL (0.20-1.00); Monocytes % (A) 8.1 %; Neutrophils # (A) 7.97 10*3/uL (1.80-7.70); Neutrophils % (A) 70.8 %; Platelet Count 205 10*3/uL (140-440); RBC 3.38 10*6/uL (4.10-5.20); RDW 15.9 % (11.5-14.5); WBC 11.27 10*3/uL (4.50-10.00)
[2024-07-22] MEDS: IPRATROPIUM-ALBUTEROL 3 ML NEB INHALATION STA (00:17)
[2024-07-22 00:25] LABS: ALT 13 U/L (4-34); AST 22 U/L (14-36); African American GFR (CKD) 90 (>60 ml/min/1.73 sqM); Albumin 3.6 g/dL (3.5-5.0); Alkaline Phosphatase 169 U/L (38-126); Anion Gap 5 mmol/L; Blood Urea Nitrogen 23 mg/dL (7-17); Calcium 9.3 mg/dL (8.4-10.2); Carbon Dioxide 26 mmol/L (22-30); Chloride 105 mmol/L (98-107); Glucose 126 mg/dL (74-99); Non-African American GFR(CKD) 78 (>60 ml/min/1.73 sqM); Potassium 4.3 mmol/L (3.5-5.1); Sodium 136 mmol/L (137-145); Total Bilirubin 0.8 mg/dL (0.2-1.3); Total Protein 5.7 g/dL (6.3-8.2)
[2024-07-22 01:04] LABS: Amorphous Sediment,Urine Rare /hpf; Appearance,Urine Clear (Clear); Bilirubin,Urine Negative (Negative); Blood,Urine Negative (Negative); Color,Urine Light Yellow; Glucose,Urine (UA) Negative (Negative); Ketones,Urine Negative (Negative); Leukocyte Esterase,Urine Moderate (Negative); Mucus,Urine Occasional /hpf; Nitrite,Urine Negative (Negative); PH, Urine 5.5 (5.0-8.0); Protein,Urine Negative (Negative); RBC,Urine 2 /hpf (0-5); Squamous Epithelial Cell,Urine <1 /hpf (0-4); Urobilinogen,Urine <2.0 mg/dL (<2.0); WBC,Urine 24 /hpf (0-5)
--- NOTE | 2024-07-22 01:39 | XR ---
EXAM: XR Bilateral Knees, 3 Views CLINICAL HISTORY: ITS.REASON XR Reason: fall TECHNIQUE: Three views of the bilateral knees. COMPARISON: No relevant prior studies available. FINDINGS: Bones/joints: No acute fracture. No dislocation. Left knee: Tricompartmental osteoarthritis with joint space narrowing and osteophytes, mostly medially. Right knee: Postoperative changes with hardware in the medial femoral condyle and medial tibial plateau. Tricompartmental osteoarthritis with joint space narrowing and osteophytes, mostly laterally. Soft tissues: Unremarkable. Vasculature: Vascular calcifications bilaterally. IMPRESSION: No acute findings in the bilateral knees.
[2024-07-22] MEDS ORDERED: NALOXONE 0.4 MG/ML 1 ML VIAL IV PRN (01:44)
--- NOTE | 2024-07-22 01:49 | CT ---
EXAM: CT Head Without Intravenous Contrast CLINICAL HISTORY: ITS.REASON CT Reason: fall TECHNIQUE: Axial computed tomography images of the head/brain without intravenous contrast. CTDI is 12.4 mGy and DLP is 576.15 mGy-cm. This CT exam was performed using one or more of the following dose reduction techniques: automated exposure control, adjustment of the mA and/or kV according to patient size, and/or use of iterative reconstruction technique. COMPARISON: 02/19/2022 FINDINGS: Brain: Mild volume loss with prominent ventricles and sulci. Mild periventricular white matter hypoattenuation likely reflects chronic small vessel disease. No hemorrhage. Ventricles: Unremarkable. No ventriculomegaly. Bones/joints: Unremarkable. No acute fracture. Soft tissues: Unremarkable. Sinuses: Unremarkable as visualized. No acute sinusitis. Mastoid air cells: Unremarkable as visualized. No mastoid effusion. IMPRESSION: No evidence of acute intracranial abnormality. EXAM: CT Cervical Spine Without Intravenous Contrast CLINICAL HISTORY: ITS.REASON CT Reason: fall TECHNIQUE: Axial computed tomography images of the cervical spine without intravenous contrast. CTDI is 16.6 mGy and DLP is 402 mGy-cm. This CT exam was performed using one or more of the following dose reduction techniques: automated exposure control, adjustment of the mA and/or kV according to patient size, and/or use of iterative reconstruction technique. COMPARISON: No relevant prior studies available. FINDINGS: Vertebrae: Old C1 and C2 fracture deformities. Angulation deformity of the odontoid with similar alignment to the prior. No acute fracture. Discs/spinal canal/neural foramina: Degenerative changes. No severe canal stenosis. Soft tissues: Unremarkable. IMPRESSION: 1. No evidence of acute fracture or malalignment. 2. Old C1 and C2 fracture deformities.
--- NOTE | 2024-07-22 01:56 | CT ---
EXAM: CT Maxillofacial Without Intravenous Contrast CLINICAL HISTORY: ITS.REASON CT Reason: fall TECHNIQUE: Axial computed tomography images of the face without intravenous contrast. CTDI is 12.4 mGy and DLP is 576.15 mGy-cm. This CT exam was performed using one or more of the following dose reduction techniques: automated exposure control, adjustment of the mA and/or kV according to patient size, and/or use of iterative reconstruction technique. COMPARISON: Head CT dated 02/19/2022 FINDINGS: Bones/joints: Mild deformity of the nasal bones, slightly different than the prior head CT. Age-indeterminate fracture. Soft tissues: Unremarkable. Orbits: Unremarkable. Sinuses: Small right maxillary sinus mucous retention cyst. No sinus fluid levels. Mild mucosal thickening of the right ethmoid and sphenoid sinuses. Mastoid air cells: Partially opacified right mastoid air cells, decreased since the prior. IMPRESSION: Mild deformity of the nasal bones, slightly different than the prior head CT. Age-indeterminate fracture.
--- NOTE | 2024-07-22 01:59 | XR ---
EXAM: XR Chest, 1 View CLINICAL HISTORY: ITS.REASON XR Reason: wheezing TECHNIQUE: Frontal view of the chest. COMPARISON: XR Chest dated 04/14/2023 FINDINGS: Lungs: Linear scarring or atelectasis in the right mid lung, somewhat similar. Curvilinear opacity in the left costophrenic angle region, somewhat similar on the prior and likely chronic changes. Pleural space: Unremarkable. No pneumothorax. Heart: Unremarkable. No cardiomegaly. Mediastinum: Unremarkable. Normal mediastinal contour. Bones/joints: Unremarkable. No acute fracture. IMPRESSION: No acute findings in the chest.
--- NOTE | 2024-07-22 02:10 | XR ---
EXAM: XR Left Hand Complete, 3 or More Views CLINICAL HISTORY: ITS.REASON XR Reason: fall TECHNIQUE: Frontal, lateral and oblique views of the left hand. COMPARISON: No relevant prior studies available. FINDINGS: Bones/joints: Osteopenia. Degenerative changes notably at the base of the thumb. Degenerative changes and mild subluxations at the 2nd, 3rd and 4th MCP joints. No acute fracture. Soft tissues: Unremarkable. No radiopaque foreign body. IMPRESSION: 1. No evidence of acute fracture. 2. Degenerative changes notably at the base of the thumb. Degenerative changes and mild subluxations at the 2nd, 3rd and 4th MCP joints.
[2024-07-22] MEDS: HYDROmorphone 0.5 MG/0.5 ML SYRINGE IVP PRN (04:51)
[2024-07-22] MEDS: IPRATROPIUM-ALBUTEROL 3 ML NEB INHALATION PRN (04:56)
[2024-07-22] MEDS: VANCOMYCIN 1,250 MG in SODIUM CHLORIDE 0.9% 250 ML IVPB SCH ×2 (06:27→21:26)
[2024-07-22] MEDS ORDERED: IPRATROPIUM-ALBUTEROL 3 ML NEB INHALATION PRN (15:36)
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
[2024-07-22] MEDS: METOPROLOL TARTRATE 50 MG TAB PO SCH (20:06)
[2024-07-22] MEDS: FAMOTIDINE 20 MG TAB PO SCH (20:06)
[2024-07-22] MEDS: ATORVASTATIN 20 MG TAB PO SCH (20:06)
[2024-07-22] MEDS: PANTOPRAZOLE 40 MG TABLET PO SCH (20:45)
[2024-07-22] MEDS ORDERED: FAMOTIDINE 20 MG TAB PO SCH (21:00)
[2024-07-23] MEDS: ACETAMINOPHEN TAB 325 MG TAB PO PRN (03:59)
[2024-07-23 04:57] LABS: African American GFR (CKD) 87 (>60 ml/min/1.73 sqM); Non-African American GFR(CKD) 75 (>60 ml/min/1.73 sqM)
[2024-07-23] MEDS: LOSARTAN 50 MG TAB PO SCH (08:53)
[2024-07-23] MEDS: polyethylene glycoL 3350 17 GM POWD.PACK PO SCH (08:54)
[2024-07-23] MEDS: PYRIDOSTIGMINE 60 MG TAB PO SCH (08:54)
[2024-07-23] MEDS: MONTELUKAST 10 MG TAB PO SCH (08:54)
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
--- NOTE | 2024-07-24 01:47 | PN ---
PROGRESS NOTE SUBJECTIVE: An 88-year-old white female with laceration of the right leg, did not go to physical therapy for a week or so otherwise stabilized medically. OBJECTIVE: CARDIOVASCULAR: S1, S2. LUNGS: Transmitted upper airway sounds. GI: Soft. HEMATOLOGY: Negative Homans. PSYCH: Fair mood and affect. ASSESSMENT AND PLAN: Chronic obstructive pulmonary disease exacerbation, fall. Rehab for a week and discharged home soon. Prognosis guarded. MMODL / IJN: [id number] /
--- NOTE | 2024-07-24 02:20 | DS ---
DISCHARGE SUMMARY Discharged home on 07/24/2024 with: 1. DuoNeb q.i.d. 2. Oxygen 2 L when she sleeps, wear this every night. 3. Clindamycin 300 t.i.d. for 7 days. 4. Acetaminophen 500 p.r.n. 5. Lipitor 20 mg a day. 6. Methadone daily for myasthenia gravis. 7. Lopressor 100 b.i.d. for hypertension. 8. Singulair 10 mg a day for allergies. 9. Cozaar 50 mg daily for hypertension. 10.Maalox p.r.n. constipation. 11.Pepcid 20 b.i.d. She is stable. Prognosis guarded. Ambulate as tolerated. HOSPITAL COURSE: This 88-year-old came in with a fall, laceration across the leg. She had multiple x-rays and CAT scans, all came out good, cleared by Orthopedics for contusions and laceration, which was sewn up in the ER. . Prognosis guarded. Home medications have been ordered, possibly 1 week MMODL / IJN: [id number] /
[2024-07-24] MEDS: VANCOMYCIN 1,250 MG in SODIUM CHLORIDE 0.9% 250 ML IVPB SCH (03:12)
[2024-07-24 03:54] LABS: African American GFR (CKD) >90 (>60 ml/min/1.73 sqM); Non-African American GFR(CKD) 79 (>60 ml/min/1.73 sqM)
[2024-07-24 07:19] VITALS: BP 152/74; RESP 15; TEMP 97.7
[2024-07-24] MEDS: CLINDAMYCIN 150 MG CAP PO SCH (07:45)
[2024-07-24 10:03] VITALS: PULSE 76
[2024-07-25] MEDS ORDERED: VANCOMYCIN TROUGH DUE 1 EACH MISC MISCELLANE ONE (02:00)
== END 2024-07-24 10:42 ==
LOC: EC 22:25 → 1SOBS 07-22 01:46 → 4SSUR 07-22 16:44
PROVIDERS: ADMIT Family Medicine; ATTEND Family Medicine
DX: S81.011A Laceration without foreign body, right knee, initial encounter (principal); S00.31XA Abrasion of nose, initial encounter; W18.30XA Fall on same level, unspecified, initial encounter; J44.1 Chronic obstructive pulmonary disease with (acute) exacerbation; J45.40 Moderate persistent asthma, uncomplicated; E78.5 Hyperlipidemia, unspecified; K21.9 Gastro-esophageal reflux disease without esophagitis; G70.00 Myasthenia gravis without (acute) exacerbation; I10 Essential (primary) hypertension; I25.2 Old myocardial infarction; M17.0 Bilateral primary osteoarthritis of knee; R29.6 Repeated falls; M51.9 Unspecified thoracic, thoracolumbar and lumbosacral intervertebral disc disorder; M50.90 Cervical disc disorder, unspecified, unspecified cervical region; Z79.899 Other long term (current) drug therapy; Z87.891 Personal history of nicotine dependence; Z88.1 Allergy status to other antibiotic agents
CPT/HCPCS: 96376 ×3; 96365 ×2; 96366 ×4; 96374; 96375 ×3; 90471; 99285; 12005; 36415; 94640 ×5; 93005; 97116; 97162; 97530; 97167; 80053; 82565 ×2; 85025; 81001; 87086; 73560; 73130; 71045; 72125; 70486; 70450; 90715; G0378 ×4; L1830; J3370 ×4; J2003; J1171 ×4